=== PATIENT | female | born 1940 | race Caucasian/White ===

== ENCOUNTER → 2020-05-23 10:00 | Outpatient (BNVA) | payer MEDICARE, SELFPAY | PROVIDERS: Family Provider Family Medicine; PCP Family Medicine; Visit Provider Family Medicine | DX: M25.511 Pain in right shoulder (principal); M54.9 Dorsalgia, unspecified; G89.29 Other chronic pain; E78.2 Mixed hyperlipidemia; F32.5 Major depressive disorder, single episode, in full remission | CPT/HCPCS: 80053; 80061; 84439; 84443; 85025 ==

== ENCOUNTER 2020-06-06 06:00 | Outpatient (RCR) | payer MEDICARE, SELFPAY | END 2020-07-01 23:59 | disposition home or self-care (01) | LOC: GPT 06:00 | PROVIDERS: PCP Family Medicine; Referring Provider Family Medicine; Visit Provider Family Medicine | DX: G89.29 Other chronic pain (principal); M25.511 Pain in right shoulder; M54.9 Dorsalgia, unspecified | CPT/HCPCS: 97032; 97110; 97162; 97530; G0283 ==

== ENCOUNTER 2020-06-07 10:56 | Outpatient (CLI) | payer MEDICARE, SELFPAY ==
--- NOTE | 2020-06-07 11:08 | MM_ITS ---
WS: [id number] DIAGNOSTIC RIGHT DIGITAL MAMMOGRAM WITH CAD HISTORY: HX OF BREAST CA COMPARISON: None available. Technique: CC, MLO and ML views. Breast composition: There are scattered areas of fibroglandular density. Seen only on the MLO projec tion is a asymmetry measuring 6 mm above the nipple line. This is not identified on the remaining pro jections. Therefore this is probably superimposed fibroglandular densities. RIGHT breast: Spot compression views ( MLO). Ultrasound to follow if abnormality persists. MM/[place] [id number] IMPRESSION: BI-RADS: 0-Incomplete: Need additional imaging evaluation FOLLOW UP: Need Additional Imaging
== END 2020-06-07 10:57 | disposition home or self-care (01) ==
LOC: RADSHAW 11:00
PROVIDERS: PCP Family Medicine; Visit Provider Family Medicine
DX: Z85.3 Personal history of malignant neoplasm of breast (principal)
CPT/HCPCS: 77065

== ENCOUNTER 2020-06-13 13:10 | Outpatient (CLI) | payer MEDICARE, SELFPAY ==
--- NOTE | 2020-06-13 13:30 | MM_ITS ---
WS: [id number] Right breast diagnostic digital mammogram, 06/13/2020 Clinical Data: abnormal mammo Comparison: 06/07/2020, 04/18/2019, 01/17/2018, 07/16/2016, 02/08/2015, 10/12/2013. Findings: The small density seen on the prior MLO view of the right breast appears to be smaller and less dist inct. It is not seen on any of the other current views. The right breast shows fibroglandular tissue. MM/[place] [id number] Impression: 1. Improvement in appearance of small density seen only on the MLO view of the right breast. 2. Return to annual right breast mammogram BIRADS: 2-Benign FOLLOW UP: 1 Year Follow-up The CAD lumber checker was used.
== END 2020-06-13 13:11 | disposition home or self-care (01) ==
LOC: RADSHAW 13:12
PROVIDERS: PCP Family Medicine; Visit Provider Family Medicine
DX: R92.8 Other abnormal and inconclusive findings on diagnostic imaging of breast (principal)
CPT/HCPCS: 73502; 77065

== ENCOUNTER 2020-08-21 15:27 | Inpatient (IN) | payer MEDICARE, SELFPAY ==
[2020-08-21 15:35] VITALS: BP 123/62; PULSE 81; RESP 18; TEMP 36.5; O2SAT 93; BMI 33.6
[2020-08-21 16:41] VITALS: BP 133/61; PULSE 81; RESP 16; O2SAT 94
--- NOTE | 2020-08-21 17:10 | ED_ITS ---
HPI - COVID General: Chief Complaint: COVID symptoms Stated Complaint: urgent care sent over/oxygen too low Time Seen by Provider: 08/21/20 16:30 Source: patient Mode of arrival: ambulatory Limitations: no limitations Triage information: No fever, cough or shortness of breath . Exposure to COVID + person last 14 days History of Present Illness: HPI Narrative: Patient is an 80-year-old female who has been having cough and difficulty breathing for about 10 days. She went to see her primary care provider today and was tested for COVID-19. She was also instructed that if oxygen saturation drops into the 80s she needed to come to the emergency department. The patient states that it was in the low 80s at home and so came in here to be seen. MD complaint: reported COVID exposure and has COVID symptoms Prior covid testing: yes, results pending at [facility] location Prior testing date: 08/21/20 COVID 19 common symptoms: positive fever(s), chills, cough, dyspnea, body aches, loss of sense of smell and/or taste, nasal congestion and nausea; negative productive cough, fatigue, headache(s), throat pain, vomiting or diarrhea COVID 19 other sytmptoms: positive lethargy; negative chest pressure, chest pain , pleuritic pain, respiratory distress, cyanosis or confusion Onset (ago): day(s) (10) Severity: moderate COVID Results: SARS-CoV-2 Antigen (Rapid) Positive (Negative) H 08/21/20 17:48 08/21/20 SARS-CoV-2 RNA (RT-PCR) Pending 08/21/20 10:16 08/21/20 Review of Systems General: Reports: 10 or more systems reviewed and unremarkable except in HPI and below Const: Reports: fever(s), chills and body aches; Denies: fatigue Eyes: Denies: change in vision or blurry vision ENMT: Reports: nasal congestion; Denies: throat pain Card: Denies: chest pain Resp: Reports: dyspnea; Denies: productive cough GI: Reports: nausea; Denies: vomiting or diarrhea : Denies: flank pain, difficulty voiding, dysuria, urinary frequency, urinary urgency or urinary hesitancy Musc: Denies: neck pain, back pain or extremity swelling Skin/Breast: Denies: rash, pruritus or erythema Neuro: Denies: headache(s) or confusion Endo: Denies: polyuria, polydipsia or tired all the time PFSH ED PFSH: Medical History Bulging lumbar disc Chronic back pain Depression Hip pain History of cancer of left breast Hyperlipemia Irregular heart beat Pyelonephritis Reflux esophagitis Right shoulder pain Surgical History History of bunionectomy 3x both feet History of cataract extraction History of cholecystectomy History of eye surgery left History of knee replacement bilateral Family History (Updated 08/21/20 @ 21:37 by Rhonda Mayen MD) Father CAD (coronary artery disease) Mother CAD (coronary artery disease) Social History (Updated 08/21/20 @ 21:38 by Rhonda Mayen MD) Smoking and tobacco status: never smoked Alcohol intake: never Substance/Drug Use: never Household members: spouse Housing: House Current occupational status: retired Physical Exam Const: COMMON NORMALS: no acute distress, average body habitus, patient oriented x3, no limitations, healthy appearing, alert and well nourished HENMT: COMMON NORMALS: normocephalic, atraumatic and moist oral mucous membranes HEAD & SCALP: normocephalic and atraumatic Eye: COMMON NORMALS: Equal, round and reactive pupils present, EOMs intact bilaterally, conjunctivae normal and no scleral icterus CONJUNCTIVA: Yes conjunctivae normal PUPIL: Yes Equal, round and reactive pupils present Neck/C-Spine: COMMON NORMALS: full ROM, supple, no meningeal signs, no JVD and No carotid bruits Resp: COMMON NORMALS: normal respiratory effort, No retractions, No use of accessory muscles, clear to auscultation bilaterally and percussion normal AUSCULTATION: clear to auscultation bilaterally PERCUSSION: percussion normal Cardio: COMMON NORMALS: no JVD, regular rate, regular rhythm, S1 normal heart sound present, S2 normal heart sound present, No gallops present (Cardio), No clicks present (Cardio), No murmurs present (Cardio), No rub (Cardio) and Peripheral pulses 2+ throughout RATE: regular rate RHYTHM: regular rhythm HEART SOUNDS: S1 normal heart sound present and S2 normal heart sound present PERIPHERAL PULSES: Peripheral pulses 2+ throughout GI: COMMON NORMALS: Normal to inspection, nondistended, normoactive bowel sounds present, Soft to palpation, non-tender, No hepatosplenomegaly present, no masses and no bruits PALPATION: Yes Soft to palpation and Yes No hepatosplenomegaly present Extremity: COMMON NORMALS: normal to inspection, full ROM, capillary refill normal, no calf tenderness and no pedal edema Neuro: COMMON NORMALS: patient oriented x3 SENSORIUM/ORIENTATION: Yes alert MENINGEAL SIGNS: Yes no meningeal signs Skin: COMMON NORMALS: no rashes or lesions noted, no wounds, turgor normal, no jaundice, no petechiae and no mottling GENERAL SKIN EXAM: no rashes or lesions noted and turgor normal Course ED course: 80-year-old female patient who presents to the emergency department with complaints of shortness of breath, hypoxia at home. She had been tested for Covid earlier today but result was pending. Because she was hypoxic she was asked to come to the emergency department in the ED she had to be placed on oxygen and when she was off oxygen her oxygen saturat ion dropped to about 88% on room air. Rapid Covid test was positive. Because of her hypoxia she is admitted for further evaluation and management. Consultations: Consultation #1: , and he kindly accepted the patient to his service Vital Signs: Vital signs: Vital Signs Temperature 97.7 F 08/21/20 15:35 Pulse Rate 81 08/21/20 16:41 Respiratory Rate 16 08/21/20 16:41 Blood Pressure 133/61 08/21/20 16:41 Pulse Oximetry 94 08/21/20 16:41 MDM - COVID MDM Narrative Medical decision making narrative: 80-year-old female patient with hypoxia, secondary to Covid 19. Chest x-ray looks good but I think it is fair to say that she likely has pneumonia. She is admitted to the hospital for further evaluation and management Differential Diagnosis Differential diagnosis: Likely COVID 19, other viral infection and pneumonia Medical Records Attestation: I reviewed the patient's medical records. Lab Data Attestation: I reviewed the patient's lab results. Result diagrams: 08/21/20 18:40 08/21/20 18:40 Labs: Lab Results 08/21/20 08/21/20 08/21/20 Range/Units 17:45 17:48 18:40 WBC 4.9 (4.0-10.0) 10^3/uL RBC 4.48 (4.1-5.3) 10^6/uL Hgb 12.5 (11.5-15.3) g/dL Hct 39.9 (37.0-47.0) % MCV 89.1 (81-99) fL MCH 27.9 L (28.0-34.0) pg MCHC 31.3 (30.0-36.0) g/dL RDW 14.1 (12.1-15.1) % Plt Count 144 (130-400) 10^3/cmm MPV 10.6 H (7.4-10.4) fL Neut % (Auto) 80.4 % Lymph % (Auto) 15.7 % Bethel % (Auto) 3.1 % Eos % (Auto) 0.0 % Baso % (Auto) 0.2 % Neut # (Auto) 3.95 (1.8-7.7) 10^3/uL Lymph # (Auto) 0.8 (0.8-4.8) 10^3/uL Bethel # (Auto) 0.2 (0.2-0.9) 10^3/uL Eos # (Auto) 0.0 (0.0-0.8) 10^3/uL Baso # (Auto) 0.0 (0.0-0.1) 10^3/uL Nucleated RBC % (auto) 0 % Nucleated RBCs # 0.0 /100WBC Fibrinogen (174-498) mg/dL D-Dimer (0-0.59) ug/mIFEU Sodium (136-145) mmol/L Potassium (3.5-5.1) mmol/L Chloride (98-107) mmol/L Carbon Dioxide (22-29) mmol/L Anion Gap (5-19) BUN (8-23) mg/dL Creatinine (0.5-0.9) mg/dL GFR Calculation Glucose (65-115) mg/dL Calculated Osmolality (285-295) mOsm/kg Lactic Acid (0.5-2.2) mmol/L Calcium (8.5-10.5) mg/dL Total Bilirubin (0.15-1.2) mg/dL AST (0-32) U/L ALT (0-33) U/L Alkaline Phosphatase (35-105) IU/L Lactate Dehydrogenase (135-214) U/L Troponin T Gen 5 ng/L (0-10) ng/L Total Protein (6.6-8.7) g/dL Albumin (3.5-5.2) g/dL Globulin (1.3-4.6) g/dL Influenza Type A Ag Cancelled Influenza Type B Ag Cancelled SARS-CoV-2 Ag (Rapid) Positive H (Negative) 08/21/20 08/21/20 08/21/20 Range/Units 18:40 18:40 18:40 WBC (4.0-10.0) 10^3/uL RBC (4.1-5.3) 10^6/uL Hgb (11.5-15.3) g/dL Hct (37.0-47.0) % MCV (81-99) fL MCH (28.0-34.0) pg MCHC (30.0-36.0) g/dL RDW (12.1-15.1) % Plt Count (130-400) 10^3/cmm MPV (7.4-10.4) fL Neut % (Auto) % Lymph % (Auto) % Bethel % (Auto) % Eos % (Auto) % Baso % (Auto) % Neut # (Auto) (1.8-7.7) 10^3/uL Lymph # (Auto) (0.8-4.8) 10^3/uL Bethel # (Auto) (0.2-0.9) 10^3/uL Eos # (Auto) (0.0-0.8) 10^3/uL Baso # (Auto) (0.0-0.1) 10^3/uL Nucleated RBC % (auto) % Nucleated RBCs # /100WBC Fibrinogen 752 H (174-498) mg/dL D-Dimer 0.87 H (0-0.59) ug/mIFEU Sodium 137 (136-145) mmol/L Potassium 4.6 (3.5-5.1) mmol/L Chloride 100 (98-107) mmol/L Carbon Dioxide 26 (22-29) mmol/L Anion Gap 15.6 (5-19) BUN 24 H (8-23) mg/dL Creatinine 1.3 H (0.5-0.9) mg/dL GFR Calculation Not Reportable Glucose 152 H (65-115) mg/dL Calculated Osmolality 291 (285-295) mOsm/kg Lactic Acid 0.6 (0.5-2.2) mmol/L Calcium 9.1 (8.5-10.5) mg/dL Total Bilirubin 0.4 (0.15-1.2) mg/dL AST 32 (0-32) U/L ALT 26 (0-33) U/L Alkaline Phosphatase 82 (35-105) IU/L Lactate Dehydrogenase 233 H (135-214) U/L Troponin T Gen 5 ng/L (0-10) ng/L Total Protein 7.4 (6.6-8.7) g/dL Albumin 3.7 (3.5-5.2) g/dL Globulin 3.7 (1.3-4.6) g/dL Influenza Type A Ag Influenza Type B Ag SARS-CoV-2 Ag (Rapid) (Negative) 08/21/20 Range/Units 18:40 WBC (4.0-10.0) 10^3/uL RBC (4.1-5.3) 10^6/uL Hgb (11.5-15.3) g/dL Hct (37.0-47.0) % MCV (81-99) fL MCH (28.0-34.0) pg MCHC (30.0-36.0) g/dL RDW (12.1-15.1) % Plt Count (130-400) 10^3/cmm MPV (7.4-10.4) fL Neut % (Auto) % Lymph % (Auto) % Bethel % (Auto) % Eos % (Auto) % Baso % (Auto) % Neut # (Auto) (1.8-7.7) 10^3/uL Lymph # (Auto) (0.8-4.8) 10^3/uL Bethel # (Auto) (0.2-0.9) 10^3/uL Eos # (Auto) (0.0-0.8) 10^3/uL Baso # (Auto) (0.0-0.1) 10^3/uL Nucleated RBC % (auto) % Nucleated RBCs # /100WBC Fibrinogen (174-498) mg/dL D-Dimer (0-0.59) ug/mIFEU Sodium (136-145) mmol/L Potassium (3.5-5.1) mmol/L Chloride (98-107) mmol/L Carbon Dioxide (22-29) mmol/L Anion Gap (5-19) BUN (8-23) mg/dL Creatinine (0.5-0.9) mg/dL GFR Calculation Glucose (65-115) mg/dL Calculated Osmolality (285-295) mOsm/kg Lactic Acid (0.5-2.2) mmol/L Calcium (8.5-10.5) mg/dL Total Bilirubin (0.15-1.2) mg/dL AST (0-32) U/L ALT (0-33) U/L Alkaline Phosphatase (35-105) IU/L Lactate Dehydrogenase (135-214) U/L Troponin T Gen 5 ng/L 14 H (0-10) ng/L Total Protein (6.6-8.7) g/dL Albumin (3.5-5.2) g/dL Globulin (1.3-4.6) g/dL Influenza Type A Ag Influenza Type B Ag SARS-CoV-2 Ag (Rapid) (Negative) COVID Results: SARS-CoV-2 Antigen (Rapid) Positive (Negative) H 08/21/20 17:48 08/21/20 SARS-CoV-2 RNA (RT-PCR) Pending 08/21/20 10:16 08/21/20 Imaging Data CXR: Attestation: I personally reviewed and interpreted this imaging study as follows: My impression: There is some haziness of the left costochondral angle. Otherwise unremarkable Discharge Plan Discharge Patient Disposition: Placed in Observation Admit Provider: Rhonda Mayen Clinical Impression: COVID-19 determined by clinical diagnostic criteria, Hypoxia Condition: Stable Coding Level of Care Code ED Dental Assistant for Chg Fwd Exam Comprehensive
--- NOTE | 2020-08-21 18:39 | XR_ITS ---
WS: [id number] Portable AP upright chest, 08/21/2020 Clinical Data: SOB Comparison: None. Findings: No nodules, masses or effusions are seen. The heart is normal. The pulmonary vascularity is not increased. No pneumonia or pneumothorax is seen. The aortic arch and descending aorta are tortuo us. Monitor leads are on the upper chest wall. XR/XR chest 1V portable [id number] Impression: Atherosclerosis.
--- NOTE | 2020-08-21 19:38 | PC.NURSE ---
UA collected and sent to lab
[2020-08-21 20:01] LABS: SARS Covid-2 Antigen Positive (Negative)
[2020-08-21 20:02] LABS: Alanine Aminotransferase 26 U/L (0-33); Albumin Level 3.7 g/dL (3.5-5.2); Alkaline Phosphatase 82 IU/L (35-105); Anion Gap 15.6 (5-19); Aspartate Amino Transferase 32 U/L (0-32); Blood Urea Nitrogen 24 mg/dL (8-23); Calcium 9.1 mg/dL (8.5-10.5); Carbon Dioxide 26 mmol/L (22-29); Chloride 100 mmol/L (98-107); Globulin 3.7 g/dL (1.3-4.6); Glucose 152 mg/dL (65-115); Lactate Dehydrogenase 233 U/L (135-214); Lactic Sepsis W/Reflex 0.6 mmol/L (0.5-2.2); Osmolality Calculated 291 mOsm/kg (285-295); Potassium 4.6 mmol/L (3.5-5.1); Sodium 137 mmol/L (136-145); Total Bilirubin 0.4 mg/dL (0.15-1.2); Total Protein 7.4 g/dL (6.6-8.7); Troponin T (5th) Once 14 ng/L (0-10)
[2020-08-21 20:07] LABS: Basophils % 0.2 %; Hematocrit 39.9 % (37.0-47.0); Hemoglobin 12.5 g/dL (11.5-15.3); Lymphocytes # 0.8 10^3/uL (0.8-4.8); Lymphocytes % 15.7 %; Mean Corpuscular HGB Conc 31.3 g/dL (30.0-36.0); Mean Corpuscular Hemoglobin 27.9 pg (28.0-34.0); Mean Corpuscular Volume 89.1 fL (81-99); Mean Platelet Volume 10.6 fL (7.4-10.4); Monocytes # 0.2 10^3/uL (0.2-0.9); Monocytes % 3.1 %; Neutrophils # 3.95 10^3/uL (1.8-7.7); Neutrophils % 80.4 %; Nucleated Red Blood Cells % 0 %; Platelet Count 144 10^3/cmm (130-400); Red Blood Count 4.48 10^6/uL (4.1-5.3); Red Cell Distribution Width 14.1 % (12.1-15.1); White Blood Count 4.9 10^3/uL (4.0-10.0)
--- NOTE | 2020-08-21 20:35 | P.HP_ITS ---
Providers/Chief Complaint Primary Care Provider: Jackson Valerio DO Chief Complaint: urgent care sent over/oxygen too low History of Present Illness Marlen Francis is a 80 year old female who does not have significant past medical history came in with chief complaint of worsening shortness of breath. Patient is stating that her symptoms started about 10 days ago with sinus congestion, she has been experiencing productive cough, she is bringing up white sputum, low-grade fevers, less than 100, did feel nauseous without any episodes of emesis, denying diarrhea, dysuria, chest pain or headaches. Few days ago when she made dinner, she experienced change in her taste. She has only going outside for essential visits otherwise she has stayed home, her also has cold, he has not been tested yet. Today she presented to the hospital for worsening shortness of breath, diagnosis in the ER revealed normal hemodynamics, chest x-ray is normal, Covid antigen positive, she is requiring 2 to 3 L of oxygen at rest, her oxygen saturation would drop to 88% on room air at rest. However no acute distress. Considering requirement of oxygen Decadron and antibiotic regiment started. Review of Systems Const: Reports: fever(s), chills, body aches, change in appetite and fatigue Eyes: Denies: change in vision ENMT: Reports: other (Dysgeusia) Card: Reports: dyspnea on exertion; Denies: chest pain Resp: Reports: dyspnea and productive cough GI: Reports: nausea; Denies: abdominal pain, vomiting, diarrhea or constipation : Reports: flank pain (Left-sided flank pain) Musc: Denies: neck pain Skin/Breast: Denies: rash Neuro: Denies: headache(s) Psych: Denies: anxiety Endo: Denies: polyuria Jose/Lymph: Denies: easy bruising All/Imm: Denies: urticaria Medications/Allergies Home Medications Medication Instructions Recorded Confirmed Last Taken Type metoprolol succinate 25 mg capsule 25 mg PO DAILY #30 each 04/18/20 08/21/20 Unknown Rx sprinkle, ext. release 24 hr omeprazole 40 mg capsule,delayed 40 mg PO DAILY #30 cap 04/18/20 08/21/20 Unknown Rx release sertraline 50 mg tablet 25 mg PO DAILY #90 tab 05/20/20 08/21/20 Unknown Rx bumetanide 0.5 mg tablet See Rx Instructions .ROUTE 06/20/20 08/21/20 Unknown Rx .COMPLEX #90 unspecified rosuvastatin 40 mg tablet See Rx Instructions .ROUTE 06/20/20 08/21/20 Unknown Rx .COMPLEX #90 unspecified azithromycin 250 mg tablet See Rx Instructions PO .COMPLEX #6 08/21/20 08/21/20 Unknown Rx tab prednisone 20 mg tablet 40 mg PO DAILY 5 Days #10 tab 08/21/20 08/21/20 Unknown Rx Allergies Allergy/AdvReac Type Severity Reaction Status Date / Time adhesive tape Allergy Unknown Unknown Verified 08/21/20 10:11 Penicillins Allergy Unknown Unknown Verified 08/21/20 10:11 Sulfa (Sulfonamide Allergy Unknown Unknown Verified 08/21/20 10:11 Antibiotics) acetaminophen [From Percocet] AdvReac Unknown Unknown Verified 08/21/20 10:11 oxycodone [From Percocet] AdvReac Unknown Unknown Verified 08/21/20 10:11 PFSH Acute 2 PFSH: Medical History Bulging lumbar disc Chronic back pain Depression Hip pain History of cancer of left breast Hyperlipemia Irregular heart beat Pyelonephritis Reflux esophagitis Right shoulder pain Surgical History History of bunionectomy 3x both feet History of cataract extraction History of cholecystectomy History of eye surgery left History of knee replacement bilateral Family History (Updated 08/21/20 @ 21:37 by Rhonda Mayen MD) Father CAD (coronary artery disease) Mother CAD (coronary artery disease) Social History (Updated 08/21/20 @ 21:38 by Rhonda Mayen MD) Smoking and tobacco status: never smoked Alcohol intake: never Substance/Drug Use: never Household members: spouse Housing: House Current occupational status: retired Vitals/I&O/Wt Last Vital Signs Temp 97.7 F 08/21/20 15:35 Pulse 81 08/21/20 16:41 Resp 16 08/21/20 16:41 BP 133/61 08/21/20 16:41 Pulse Ox 94 08/21/20 16:41 Weight last 48 hrs Weight 97.522 kg Physical Exam Narrative: EXAM NARRATIVE: This is a very pleasant female who is sitting at the bedside without acute distress No active chest pain She saturating well on 4 L nasal cannula Appears younger than stated age S1, S2 no tachycardia No active signs of heart failure Abdomen distended, nontender No CVA tenderness She complained of left flank pain which she is attributing to rib fracture in the past, Neurologically nonfocal exam Awake alert oriented x3 GCS 15 Appropriate mood and affect Bilateral breath sounds without adventitious rhonchi or crackles Skin without ischemia gangrene or ulcer Data : 08/21/20 18:40 08/21/20 18:40 A&P Assessment and plan (1) Hypoxia: Status: Acute (2) COVID-19 determined by clinical diagnostic criteria: Status: Acute (3) Chronic kidney disease: Status: Acute Additional A&P Information Acute hypoxic respiratory failure due to SARS COVID-19 Requiring 2-4 L nasal cannula, desaturated to 88% on room air at rest, Start Decadron and antiviral regimen Home O2 evaluation before No acute respiratory distress Would hold a azithromycin which she has been taking for sinus congestion Severe COVID-19 pneumonia requiring oxygenation Chronic kidney disease, creatinine seems to be around baseline, GFR not reported abnormal unable to classify Previous creatinine has been ranging between 1.4-1.6 Currently euvolemic Atrial tachycardia history: No acute exacerbation, continue metoprolol succinate for now Full code DVT prophylaxis Heparin Cardiac diet Attestations Medical Necessity Statement*: Anticipating discharge in less than 48 hours continued oxygen supplementation for COVID-19 viral pneumonia, Time Spent in Patient Care: (>than 50% of time spent in counselling and/or direct pt care on unit) . 40mins Coding Level of Care Code Acute Pricing/Signage Team Member for Cora Minor 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
[2020-08-21 20:40] LABS: D Dimer 0.87 ug/mIFEU (0-0.59); Fibrinogen 752 mg/dL (174-498)
[2020-08-21] MEDS: dexamethasone 4 mg/mL INJ 6 MG IVP (21:03)
[2020-08-21] MEDS: sodium chloride 0.9% 1,000 ML 999 ML IV (21:04)
[2020-08-21 21:48] VITALS: BP 106/59; PULSE 74; RESP 16; O2SAT 96
[2020-08-21 22:02] LABS: Bilirubin Urine Neg (Negative); Blood Urine Neg (Negative); Glucose Urine UA Norm (Normal); Ketones Urine Negative (Negative); Leukocyte Esterase Urine Negative (Negative); Nitrate Urine Negative (Negative); Protein Urine Neg (Negative); Specific Gravity, Urine 1.015 (1.005-1.030); Urine Appearance Clear (CLEAR); Urine Color Yellow (Yellow); Urobilinogen Urine Norm (Negative)
[2020-08-21 22:03] LABS: Add Urine Culture? No
[2020-08-21 22:15] LABS: Procalcitonin 0.09 ng/mL (0-0.5)
[2020-08-21 22:25] LABS: C Reactive Protein 131.2 mg/L (0.0-4.9)
[2020-08-21 22:52] VITALS: BP 149/76; PULSE 79; RESP 18; TEMP 36.9; O2SAT 98
[2020-08-21] MEDS: heparin 5,000 unit/mL INJ 1 mL 5000 UNIT SUBCUT (23:18)
[2020-08-21 23:59] VITALS: BP 108/78; PULSE 104; RESP 16; O2SAT 96
[2020-08-22] VITALS (9 sets, daily range): BP systolic 123–152; BP diastolic 68–74; PULSE 64–78; RESP 16–18; TEMP 36.4–36.9; O2SAT 93–98
[2020-08-22 05:55] LABS: Hematocrit 37.1 % (37.0-47.0); Hemoglobin 11.6 g/dL (11.5-15.3); Lymphocytes # 0.6 10^3/uL (0.8-4.8); Lymphocytes % 16.4 %; Mean Corpuscular HGB Conc 31.3 g/dL (30.0-36.0); Mean Corpuscular Hemoglobin 27.9 pg (28.0-34.0); Mean Corpuscular Volume 89.2 fL (81-99); Mean Platelet Volume 11.1 fL (7.4-10.4); Monocytes # 0.1 10^3/uL (0.2-0.9); Monocytes % 3.1 %; Neutrophils # 2.81 10^3/uL (1.8-7.7); Neutrophils % 79.7 %; Nucleated Red Blood Cells % 0 %; Platelet Count 130 10^3/cmm (130-400); Red Blood Count 4.16 10^6/uL (4.1-5.3); Red Cell Distribution Width 13.6 % (12.1-15.1); White Blood Count 3.5 10^3/uL (4.0-10.0)
[2020-08-22 06:27] LABS: Alanine Aminotransferase 23 U/L (0-33); Albumin Level 3.2 g/dL (3.5-5.2); Alkaline Phosphatase 69 IU/L (35-105); Blood Urea Nitrogen 23 mg/dL (8-23); Calcium 8.8 mg/dL (8.5-10.5); Carbon Dioxide 25 mmol/L (22-29); Chloride 104 mmol/L (98-107); Globulin 3.5 g/dL (1.3-4.6); Glucose 196 mg/dL (65-115); Osmolality Calculated 297 mOsm/kg (285-295); Sodium 139 mmol/L (136-145); Total Bilirubin 0.3 mg/dL (0.15-1.2); Total Protein 6.7 g/dL (6.6-8.7)
[2020-08-22 06:33] LABS: Anion Gap 14.7 (5-19); Aspartate Amino Transferase 38 U/L (0-32); Potassium 4.7 mmol/L (3.5-5.1)
[2020-08-22 08:07] LABS: Glucose Point of Care 166 mg/dL (70-110)
[2020-08-22] MEDS: heparin 5,000 unit/mL INJ 1 mL 5000 UNIT SUBCUT ×3 (08:49→21:56)
[2020-08-22] MEDS: metoprolol succinate ER (24 HR) 25 mg Tablet PO (08:50)
[2020-08-22] MEDS: pantoprazole DR 40 mg Tablet PO (08:50)
[2020-08-22] MEDS: atorvastatin 40 mg Tablet PO (08:50)
[2020-08-22] MEDS: dexamethasone 4 mg Tablet 6 MG PO (08:50)
[2020-08-22] MEDS: sertraline 50 mg Tablet 25 MG PO (08:52)
[2020-08-22 11:58] LABS: Glucose Point of Care 160 mg/dL (70-110)
--- NOTE | 2020-08-22 12:05 | PM.PN ---
Subjective Subjective: Interval history: Patient feels much better since last night. She is saturating well on 2 L oxygen through nasal cannula. Her shortness of breath has improved, she is tolerating diet, though she still has not good appetite. Vitals and labs have been reviewed. Medications: Reviewed: Yes Vitals/I&O/Wt Last Vital Signs Temp 97.8 F 08/22/20 08:09 Pulse 77 08/22/20 09:23 Resp 18 08/22/20 09:23 BP 143/68 08/22/20 08:09 Pulse Ox 97 08/22/20 09:23 08/21/20 08/22/20 08/22/20 22:59 06:59 14:59 Intake Total 300 / 300 Output Total 350 / 350 Balance -350 / -350 300 / 300 Weight last 48 hrs Weight 97.522 kg Physical Exam Const: COMMON NORMALS: patient oriented x3 HENMT: COMMON NORMALS: normocephalic, atraumatic, hearing grossly normal bilaterally and external ears normal HEAD & SCALP: normocephalic and atraumatic EXTERNAL EAR: Yes external ears normal Eye: COMMON NORMALS: no scleral icterus GENERAL EYE: appearance normal, both eyes and all related structures Chest: COMMONS NORMALS: normal inspection of the chest and normal palpation of entire chest wall CHEST: Yes Symmetrical chest wall rise Resp: COMMON NORMALS: normal respiratory effort, No retractions, No use of accessory muscles and clear to auscultation bilaterally EFFORT & INSPECTION: Yes symmetric chest movement AUSCULTATION: clear to auscultation bilaterally Cardio: COMMON NORMALS: regular rate, regular rhythm, S1 normal heart sound present, S2 normal heart sound present, No gallops present (Cardio), No murmurs present (Cardio), No rub (Cardio) and Peripheral pulses 2+ throughout RATE: regular rate RHYTHM: regular rhythm HEART SOUNDS: S1 normal heart sound present and S2 normal heart sound present PERIPHERAL PULSES: Peripheral pulses 2+ throughout GI: COMMON NORMALS: Normal to inspection, nondistended, normoactive bowel sounds present, Soft to palpation, non-tender, No hepatosplenomegaly present and no masses AUSCULTATION: Yes normoactive bowel sounds PALPATION: Yes Soft to palpation and Yes No hepatosplenomegaly present RECTAL EXAM: deferred Extremity: COMMON NORMALS: no clubbing, cyanosis or edema and no pedal edema Neuro: COMMON NORMALS: patient oriented x3 Data : 08/22/20 04:50 08/22/20 04:50 A&P Assessment and plan (1) Hypoxia: Status: Acute (2) COVID-19 determined by clinical diagnostic criteria: Status: Acute (3) Chronic kidney disease: Status: Acute Additional A&P Information #Acute hypoxic respiratory failure due to SARS COVID-19 Requiring 2-4 L nasal cannula, desaturated to 88% on room air at rest, Continue Decadron and antiviral regimen No acute respiratory distress #Severe COVID-19 pneumonia requiring oxygenation #Chronic kidney disease, creatinine seems to be around baseline, GFR not reported abnormal unable to classify Previous creatinine has been ranging between 1.4-1.6 Currently euvolemic #Atrial tachycardia history: No acute exacerbation, continue metoprolol succinate for now Full code DVT prophylaxis Heparin Cardiac diet Attestations Medical Necessity Statement*: Patient is to be hospital for management of Covid pneumonia. Coding Level of Care Code Acute Expert Medical Writer for Cora Minor 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
[2020-08-22 16:51] LABS: Glucose Point of Care 178 mg/dL (70-110)
[2020-08-22 21:29] LABS: Glucose Point of Care 170 mg/dL (70-110)
[2020-08-23] VITALS (8 sets, daily range): BP systolic 124–138; BP diastolic 68–72; PULSE 57–87; RESP 14–18; TEMP 36.5–37.2; O2SAT 92–97
[2020-08-23 06:40] LABS: Glucose Point of Care 134 mg/dL (70-110)
[2020-08-23] MEDS: metoprolol succinate ER (24 HR) 25 mg Tablet PO (08:48)
[2020-08-23] MEDS: heparin 5,000 unit/mL INJ 1 mL 5000 UNIT SUBCUT ×2 (08:48→17:43)
[2020-08-23] MEDS: dexamethasone 4 mg Tablet 6 MG PO (08:48)
[2020-08-23] MEDS: pantoprazole DR 40 mg Tablet PO (08:49)
[2020-08-23] MEDS: sertraline 50 mg Tablet 25 MG PO (08:49)
[2020-08-23] MEDS: atorvastatin 40 mg Tablet PO (08:50)
[2020-08-23 11:22] LABS: Glucose Point of Care 177 mg/dL (70-110)
--- NOTE | 2020-08-23 11:40 | PM.PN ---
Subjective Subjective: Interval history: She is doing much better today.Has saturated above 90 % on minimum suplemental oxygen. Though she still has some nausea and cough. Has remained afebrile and other vitals have been stable. Medications: Reviewed: Yes Vitals/I&O/Wt Last Vital Signs Temp 98.0 F 08/23/20 11:27 Pulse 57 L 08/23/20 11:27 Resp 18 08/23/20 11:27 BP 124/71 08/23/20 11:27 Pulse Ox 97 08/23/20 11:27 08/22/20 08/23/20 08/23/20 22:59 06:59 14:59 Intake Total 480 / 1020 240 / 240 Output Total 250 / 250 1570 / 1820 Balance 230 / 770 -1570 / -800 240 / 240 Weight last 48 hrs Weight 97.522 kg Physical Exam Const: COMMON NORMALS: patient oriented x3 HENMT: COMMON NORMALS: normocephalic, atraumatic, hearing grossly normal bilaterally and external ears normal HEAD & SCALP: normocephalic and atraumatic EXTERNAL EAR: Yes external ears normal Eye: COMMON NORMALS: no scleral icterus GENERAL EYE: appearance normal, both eyes and all related structures Chest: COMMONS NORMALS: normal inspection of the chest and normal palpation of entire chest wall CHEST: Yes Symmetrical chest wall rise Resp: COMMON NORMALS: normal respiratory effort, No retractions, No use of accessory muscles and clear to auscultation bilaterally EFFORT & INSPECTION: Yes symmetric chest movement AUSCULTATION: clear to auscultation bilaterally Cardio: COMMON NORMALS: regular rate, regular rhythm, S1 normal heart sound present, S2 normal heart sound present, No gallops present (Cardio), No murmurs present (Cardio), No rub (Cardio) and Peripheral pulses 2+ throughout RATE: regular rate RHYTHM: regular rhythm HEART SOUNDS: S1 normal heart sound present and S2 normal heart sound present PERIPHERAL PULSES: Peripheral pulses 2+ throughout GI: COMMON NORMALS: Normal to inspection, nondistended, normoactive bowel sounds present, Soft to palpation, non-tender, No hepatosplenomegaly present and no masses AUSCULTATION: Yes normoactive bowel sounds PALPATION: Yes Soft to palpation and Yes No hepatosplenomegaly present RECTAL EXAM: deferred Extremity: COMMON NORMALS: no clubbing, cyanosis or edema and no pedal edema Neuro: COMMON NORMALS: patient oriented x3 Data : 08/22/20 04:50 08/22/20 04:50 A&P Assessment and plan (1) Hypoxia: Status: Acute (2) COVID-19 determined by clinical diagnostic criteria: Status: Acute (3) Chronic kidney disease: Status: Acute Additional A&P Information #Acute hypoxic respiratory failure due to SARS COVID-19 ( Improving ) She is doing much better today.Has saturated above 90 % on minimum suplemental oxygen. Though she still has some nausea and cough. Has remained afebrile and other vitals have been stable. Continue Decadron and antiviral regimen No acute respiratory distress #COVID-19 pneumonia: Plan as 1 #Chronic kidney disease, creatinine seems to be around baseline. 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
[2020-08-23 17:05] LABS: Glucose Point of Care 164 mg/dL (70-110)
[2020-08-23] MEDS: fluticasone nasal spray 16gm Btl 1 SPRAY NASAL (17:44)
[2020-08-23 21:12] LABS: Glucose Point of Care 224 mg/dL (70-110)
[2020-08-24] VITALS (7 sets, daily range): BP systolic 116–148; BP diastolic 65–80; PULSE 52–86; RESP 14–18; TEMP 36.7–37; O2SAT 92–100
[2020-08-24] MEDS: heparin 5,000 unit/mL INJ 1 mL 5000 UNIT SUBCUT ×3 (00:07→17:45)
[2020-08-24 05:39] LABS: Basophils % 0.2 %; Hemoglobin 11.9 g/dL (11.5-15.3); Lymphocytes # 1.1 10^3/uL (0.8-4.8); Lymphocytes % 12.2 %; Mean Corpuscular HGB Conc 32.2 g/dL (30.0-36.0); Mean Corpuscular Hemoglobin 28.3 pg (28.0-34.0); Mean Corpuscular Volume 87.9 fL (81-99); Mean Platelet Volume 10.5 fL (7.4-10.4); Monocytes # 0.4 10^3/uL (0.2-0.9); Monocytes % 4.1 %; Neutrophils # 7.45 10^3/uL (1.8-7.7); Nucleated Red Blood Cells % 0 %; Platelet Count 188 10^3/cmm (130-400); Red Blood Count 4.21 10^6/uL (4.1-5.3); Red Cell Distribution Width 13.6 % (12.1-15.1); White Blood Count 9.2 10^3/uL (4.0-10.0)
[2020-08-24 05:59] LABS: Alanine Aminotransferase 22 U/L (0-33); Albumin Level 3.2 g/dL (3.5-5.2); Alkaline Phosphatase 67 IU/L (35-105); Anion Gap 12.6 (5-19); Aspartate Amino Transferase 22 U/L (0-32); Blood Urea Nitrogen 35 mg/dL (8-23); Calcium 8.7 mg/dL (8.5-10.5); Carbon Dioxide 25 mmol/L (22-29); Chloride 106 mmol/L (98-107); Globulin 2.6 g/dL (1.3-4.6); Glucose 132 mg/dL (65-115); Osmolality Calculated 298 mOsm/kg (285-295); Potassium 4.6 mmol/L (3.5-5.1); Sodium 139 mmol/L (136-145); Total Bilirubin 0.3 mg/dL (0.15-1.2); Total Protein 5.8 g/dL (6.6-8.7)
[2020-08-24 06:10] LABS: Ferritin 662 ng/mL (15-150)
[2020-08-24 06:11] LABS: C Reactive Protein 30.6 mg/L (0.0-4.9)
[2020-08-24 06:39] LABS: Glucose Point of Care 117 mg/dL (70-110)
[2020-08-24 06:58] LABS: Erythrocyte Sedimentation Rate 49 mm/hr (0-15)
[2020-08-24 07:23] LABS: Fibrinogen 461 mg/dL (174-498)
[2020-08-24 07:27] LABS: D Dimer 1.12 ug/mIFEU (0-0.59)
[2020-08-24] MEDS: pantoprazole DR 40 mg Tablet PO (11:23)
[2020-08-24] MEDS: dexamethasone 4 mg Tablet 6 MG PO (11:23)
[2020-08-24] MEDS: fluticasone nasal spray 16gm Btl 1 SPRAY NASAL ×2 (11:23→17:45)
[2020-08-24] MEDS: atorvastatin 40 mg Tablet PO (11:23)
[2020-08-24] MEDS: sertraline 50 mg Tablet 25 MG PO (11:24)
[2020-08-24] MEDS: metoprolol succinate ER (24 HR) 25 mg Tablet PO (11:24)
[2020-08-24 13:13] LABS: Glucose Point of Care 135 mg/dL (70-110)
[2020-08-24 17:14] LABS: Glucose Point of Care 169 mg/dL (70-110)
[2020-08-24 21:19] LABS: Glucose Point of Care 281 mg/dL (70-110)
--- NOTE | 2020-08-24 21:56 | P.PN_ITS ---
Subjective Subjective: Interval history: No acute event overnight.Though she is still complaining of fatigue and weakness. Vitals and labs have been reviewed. Currently saturating above 90 % on R.A Medications: Reviewed: Yes Vitals/I&O/Wt Last Vital Signs Temp 98.6 F 08/24/20 20:00 Pulse 52 L 08/24/20 20:52 Resp 18 08/24/20 20:52 BP 125/65 08/24/20 20:00 Pulse Ox 96 08/24/20 20:52 08/24/20 08/24/20 08/24/20 06:59 14:59 22:59 Intake Total 240 / 960 480 / 480 Output Total 1250 / 2550 600 / 600 1000 / 1600 Balance -1010 / -1590 -120 / -120 -1000 / -1120 Physical Exam Const: COMMON NORMALS: patient oriented x3 HENMT: COMMON NORMALS: normocephalic, atraumatic, hearing grossly normal bilaterally and external ears normal HEAD & SCALP: normocephalic and atraumatic EXTERNAL EAR: Yes external ears normal Eye: COMMON NORMALS: no scleral icterus GENERAL EYE: appearance normal, both eyes and all related structures Chest: COMMONS NORMALS: normal inspection of the chest and normal palpation of entire chest wall CHEST: Yes Symmetrical chest wall rise Resp: COMMON NORMALS: normal respiratory effort, No retractions, No use of accessory muscles and clear to auscultation bilaterally EFFORT & INSPECTION: Yes symmetric chest movement AUSCULTATION: clear to auscultation bilaterally Cardio: COMMON NORMALS: regular rate, regular rhythm, S1 normal heart sound present, S2 normal heart sound present, No gallops present (Cardio), No murmurs present (Cardio), No rub (Cardio) and Peripheral pulses 2+ throughout RATE: regular rate RHYTHM: regular rhythm HEART SOUNDS: S1 normal heart sound present and S2 normal heart sound present PERIPHERAL PULSES: Peripheral pulses 2+ throughout GI: COMMON NORMALS: Normal to inspection, nondistended, normoactive bowel sounds present, Soft to palpation, non-tender, No hepatosplenomegaly present and no masses AUSCULTATION: Yes normoactive bowel sounds PALPATION: Yes Soft to palpation and Yes No hepatosplenomegaly present RECTAL EXAM: deferred Extremity: COMMON NORMALS: no clubbing, cyanosis or edema and no pedal edema Neuro: COMMON NORMALS: patient oriented x3 Data : 08/24/20 05:15 08/24/20 05:15 A&P Assessment and plan (1) Hypoxia: Status: Acute (2) COVID-19 determined by clinical diagnostic criteria: Status: Acute (3) Chronic kidney disease: Status: Acute Additional A&P Information #Acute hypoxic respiratory failure due to SARS COVID-19 ( Improving ) She is doing much better today.Has saturated above 90 % on minimum suplemental oxygen. Has remained afebrile and other vitals have been stable. Continue Decadron and antiviral regimen No acute respiratory distress #COVID-19 pneumonia: Plan as 1 #Chronic kidney disease, creatinine seems to be around baseline. 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
[2020-08-25] VITALS (7 sets, daily range): BP systolic 134–148; BP diastolic 65–72; PULSE 52–68; RESP 16–18; TEMP 36.4–36.8; O2SAT 92–99
[2020-08-25] MEDS: heparin 5,000 unit/mL INJ 1 mL 5000 UNIT SUBCUT ×2 (01:29→08:11)
[2020-08-25 04:13] LABS: Basophils % 0.1 %; Hematocrit 39.5 % (37.0-47.0); Hemoglobin 12.6 g/dL (11.5-15.3); Lymphocytes % 11.4 %; Mean Corpuscular HGB Conc 31.9 g/dL (30.0-36.0); Mean Corpuscular Hemoglobin 28.2 pg (28.0-34.0); Mean Corpuscular Volume 88.4 fL (81-99); Mean Platelet Volume 10.4 fL (7.4-10.4); Monocytes # 0.5 10^3/uL (0.2-0.9); Monocytes % 5.3 %; Neutrophils # 7.09 10^3/uL (1.8-7.7); Neutrophils % 78.8 %; Nucleated Red Blood Cells % 0 %; Platelet Count 194 10^3/cmm (130-400); Red Blood Count 4.47 10^6/uL (4.1-5.3); Red Cell Distribution Width 13.7 % (12.1-15.1)
[2020-08-25 04:32] LABS: Alanine Aminotransferase 29 U/L (0-33); Albumin Level 3.2 g/dL (3.5-5.2); Alkaline Phosphatase 79 IU/L (35-105); Anion Gap 13.1 (5-19); Aspartate Amino Transferase 26 U/L (0-32); Blood Urea Nitrogen 33 mg/dL (8-23); Calcium 9.2 mg/dL (8.5-10.5); Carbon Dioxide 27 mmol/L (22-29); Chloride 104 mmol/L (98-107); Globulin 3.3 g/dL (1.3-4.6); Glucose 136 mg/dL (65-115); Osmolality Calculated 297 mOsm/kg (285-295); Potassium 5.1 mmol/L (3.5-5.1); Sodium 139 mmol/L (136-145); Total Bilirubin 0.3 mg/dL (0.15-1.2); Total Protein 6.5 g/dL (6.6-8.7)
[2020-08-25 06:32] LABS: Glucose Point of Care 123 mg/dL (70-110)
[2020-08-25] MEDS: dexamethasone 4 mg Tablet 6 MG PO (08:11)
[2020-08-25] MEDS: atorvastatin 40 mg Tablet PO (08:11)
[2020-08-25] MEDS: fluticasone nasal spray 16gm Btl 1 SPRAY NASAL (08:11)
[2020-08-25] MEDS: pantoprazole DR 40 mg Tablet PO (08:12)
[2020-08-25] MEDS: metoprolol succinate ER (24 HR) 25 mg Tablet PO (08:12)
[2020-08-25] MEDS: sertraline 50 mg Tablet 25 MG PO (08:12)
--- NOTE | 2020-08-25 11:05 | PM.DCS ---
Discharge Providers Date of Admission: 08/22/20 19:15 Date of Discharge: August 25, 2020 Attending Provider at Admission: Rhonda Mayen MD Attending Provider at Discharge: Wisam Nelson MD Primary Care Provider: Jackson Valerio DO Diagnoses at Discharge Discharge Diagnosis (1) Hypoxia: (2) COVID-19 determined by clinical diagnostic criteria: (3) Chronic kidney disease: Reason for Visit Reason for Visit: urgent care sent over/oxygen too low Hospital Course Hospital Course: 80 Y O F with PMH of HTN was admitted with c/o of worsening shortness of breath along with cough with whitish sputum as well as generalized fatigue,loss of appetite,nausea,headache,low grade fever.Symptoms started 10 days prior to the admission.During this hospital stay she was diagnosed with COVID PNA.She was kept on COVID protocol ( Remdesivir as well as Decadron ) along with symptomatic management.Initially she required supplemental oxygen 2-3 L to maintain a saturation above 90 %.But at the time of discharge she was saturating well on R.A. She responded well to the current medical management and was discharged in stable condition. Physical Exam Const: COMMON NORMALS: patient oriented x3 HENMT: COMMON NORMALS: normocephalic, atraumatic, hearing grossly normal bilaterally and external ears normal HEAD & SCALP: normocephalic and atraumatic EXTERNAL EAR: Yes external ears normal Eye: COMMON NORMALS: no scleral icterus GENERAL EYE: appearance normal, both eyes and all related structures Chest: COMMONS NORMALS: normal inspection of the chest and normal palpation of entire chest wall CHEST: Yes Symmetrical chest wall rise Resp: COMMON NORMALS: normal respiratory effort, No retractions, No use of accessory muscles and clear to auscultation bilaterally EFFORT & INSPECTION: Yes symmetric chest movement AUSCULTATION: clear to auscultation bilaterally Cardio: COMMON NORMALS: regular rate, regular rhythm, S1 normal heart sound present, S2 normal heart sound present, No gallops present (Cardio), No murmurs present (Cardio), No rub (Cardio) and Peripheral pulses 2+ throughout RATE: regular rate RHYTHM: regular rhythm HEART SOUNDS: S1 normal heart sound present and S2 normal heart sound present PERIPHERAL PULSES: Peripheral pulses 2+ throughout GI: COMMON NORMALS: Normal to inspection, nondistended, normoactive bowel sounds present, Soft to palpation, non-tender, No hepatosplenomegaly present and no masses AUSCULTATION: Yes normoactive bowel sounds PALPATION: Yes Soft to palpation and Yes No hepatosplenomegaly present RECTAL EXAM: deferred Extremity: COMMON NORMALS: no clubbing, cyanosis or edema and no pedal edema Neuro: COMMON NORMALS: patient oriented x3 Discharge Data Data Completed and Pending: Completed Studies During Hospitalization Category Date Time Status XR chest 1V [place] ble [id number] Stat Exams 08/21/20 18:39 Completed Pending at discharge Category Date Time Status CBC Auto Diff [Co mplete Blood Count w/Auto] AM LABS Lab 08/26/20 04:00 Ordered CMP [Comprehensiv e Metabolic Panel] AM LABS Lab 08/26/20 04:00 Ordered Labs from last 24 hours 08/25/20 08/25/20 08/25/20 06:28 03:59 03:59 WBC 9.0 RBC 4.47 Hgb 12.6 Hct 39.5 MCV 88.4 MCH 28.2 MCHC 31.9 RDW 13.7 Plt Count 194 MPV 10.4 Neut % (Auto) 78.8 Lymph % (Auto) 11.4 Cherry % (Auto) 5.3 Eos % (Auto) 0.0 Baso % (Auto) 0.1 Neut # (Auto) 7.09 Lymph # (Auto) 1.0 Cherry # (Auto) 0.5 Eos # (Auto) 0.0 Baso # (Auto) 0.0 Nucleated RBC % (a uto) 0 Nucleated RBCs # 0.0 Sodium 139 Potassium 5.1 Chloride 104 Carbon Dioxide 27 Anion Gap 13.1 BUN 33 H Creatinine 1.2 H GFR Calculation Not Reportable Glucose 136 H POC Glucose 123 Calculated Osmolal ity 297 H Calcium 9.2 Total Bilirubin 0.3 AST 26 ALT 29 Alkaline Phosphata se 79 Total Protein 6.5 L Albumin 3.2 L Globulin 3.3 08/24/20 08/24/20 08/24/20 20:56 17:06 12:57 WBC RBC Hgb Hct MCV MCH MCHC RDW Plt Count MPV Neut % (Auto) Lymph % (Auto) Cherry % (Auto) Eos % (Auto) Baso % (Auto) Neut # (Auto) Lymph # (Auto) Cherry # (Auto) Eos # (Auto) Baso # (Auto) Nucleated RBC % (a uto) Nucleated RBCs # Sodium Potassium Chloride Carbon Dioxide Anion Gap BUN Creatinine GFR Calculation Glucose POC Glucose 281 169 135 Calculated Osmolal ity Calcium Total Bilirubin AST ALT Alkaline Phosphata se Total Protein Albumin Globulin Vitals: Last Vital Signs Temp 97.6 F 08/25/20 08:00 Pulse 68 08/25/20 09:16 Resp 18 08/25/20 09:16 BP 134/69 08/25/20 08:00 Pulse Ox 99 08/25/20 09:16 Discharge Plan Discharge Patient Disposition: Home Condition: Stable Prescriptions: New fluticasone propionate 50 mcg/actuation [place],Suspension 1 spray nasal BID 30 Days RF: 0 Decadron 4 mg tablet 4 mg PO DAILY Qty: 7 RF: 0 budesonide 90 mcg/actuation aerosol powdr breath activated 2 inh INHALATION Q12H Qty: 1 RF: 0 Continued omeprazole 40 mg capsule,delayed release(DR/EC) 40 mg PO DAILY Qty: 30 RF: 11 metoprolol succinate 25 mg capsule,sprinkle,ER 24hr 25 mg PO DAILY Qty: 30 RF: 11 sertraline 50 mg tablet 25 mg PO DAILY Qty: 90 RF: 3 rosuvastatin 40 mg tablet See Rx Instructions .ROUTE .COMPLEX Qty: 90 RF: 11 bumetanide 0.5 mg tablet See Rx Instructions .ROUTE .COMPLEX Qty: 90 RF: 11 Discontinued azithromycin 250 mg tablet See Rx Instructions PO .COMPLEX Qty: 6 RF: 0 prednisone 20 mg tablet 40 mg PO DAILY 5 Days Qty: 10 RF: 0 Discharge Orders: Discharge Order (Routine); Ordered 08/25/20 Ordered By: Wisam Nelson Referrals: [facility] [Outside] Jackson Valerio DO [Primary Care Provider] - 4-7 days (Please call Wednesday to schedule a follow up/virtual appointment.) Discharge Diet: Usual diet Discharge Activity: Increase activity as tolerated Patient Instructions: Fluticasone (By breathing), Budesonide (By breathing), Dexamethasone (By mouth), Using Oxygen at Home (GEN), Hypoxia (GEN), Pneumonia Stoplight, Pneumonia - Viral Discharge Date/Time: 08/25/20 13:31 Discharge Attestations Time Spent in Discharge Care*: greater than 30 min Specific Discharge Activities: Specific discharge activities: educating patient, educating and/or supporting family/caregiver, discussing with pcp/other providers, discussing with leather case finisher/social workers/dc planners, documenting/other paperwork and evaluating patient/reviewing data Status at Discharge: Cognitive status at discharge: cognitively intact, Behavioral status at discharge: cooperative, Functional status at discharge: independent ambulation Overall status at discharge: patient is back to baseline Quality Metrics Clinical Quality Measures During this hospital stay, did patient experience: None Coding 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
[2020-08-25 13:01] LABS: Glucose Point of Care 185 mg/dL (70-110)
--- NOTE | 2020-08-27 13:50 | PC.SOCIAL ---
Addendum entered by Manju Rawls 08/27/20 14:08: Patient is currently on oxygen, her niece Teresa who works at [employer] brought her oxygen for at home. This is not prescribed oxygen that I am aware of. Original Note: Visited with the patient on the phone. When asked if she had an appointment set up to see her PCP, she responded that she has an appointment for at 9:20 AM. She stated that she may need it sooner as she is still having trouble breathing and having shortness of breath, she stated her oxygen is dropping and her heart rate (40s) is dropping everytime she gets up and around. I was able to contact the . office (Dr. Valerio) and move her appointment to tomorrow at 10 AM. The patient was fine with this, I also spoke to the dr office about setting the patient up with HH and to check if she would now qualify for Oxygen. She did mention that the Dr (Hospitalist) was suppose to prescribe her Blood thinner medication as he has asked her to stop the baby aspirin at home. She was not discharged with bloodthinner medication. This fha underwriter will check on this. We went over the ways to help keep her immune system up, including eating and drinking well, keeping up with Dr. appointments and immunizations, staying away from stress, and resting well. We also spoke of ways to help prevent the Covid 19 spread which included proper hand washing, face covering, social distancing, sanitizing surfaces, turning head when coughing or sneezing. We also spoke of what symptoms to look for and when to be alarmed, these symptoms are; fever of 104 or higher, shortness of breath, trouble breathing, chest pain or discomfort lasting longer then 5 minutes, confusion or trouble waking up and blue lips or face. We also spoke of plasma donation, information will be mailed to the patient.
--- NOTE | 2020-08-27 14:07 | PC.SOCIAL ---
Patient did state that she is on oxygen now, her niece Teresa from [employer] brought her some, it is not prescribed to her by a doctor.
--- NOTE | 2020-08-27 14:19 | PC.SOCIAL ---
Spoke with Manju after her follow up call regarding a few concerns. Patient did not qualify for O2 based on O2 eval here. 6 min exercise test her O2 was at 94%. Today patient reported her O2 dropped to 80% with her walking to the bathroom and pulse dropped in the 40's. She does have O2 at home that was brought to her by a friend that works at a [employer]. She put this on and O2 came up to above 90%. She indicates she does not feel well. Since this episode this am she has been keeping the O2 on due to her O2 drops in upper 80's when she takes it off at all. Concern is for PE. Discussed case with Dr Nelson. He indicates she was not dc'd on anticoagulant since she was not requiring O2 did will on O2 home evaluation and she was overall improving. We discussed it could take longer to get her in for a CTA if this is done as outpatient. This nurse discussed option with Dr Nelson. Decision made to have her return to ED to assess for DVT/ PE and determine if she should be started on Eliquis etc. Dr Kincaid agreed she should come back for evaluation. Called patient and explained to her that it is highly recommended she return to ED today to complete testing to ensure she does not have a clot. She verbalized understanding. She does not live close so it will be awhile before she can arrive. Updated Manju and she will verify in am if patient is admitted and if so will rescheduled her appt with Dr Valerio.
== END 2020-08-25 13:31 | disposition home or self-care (01) | DRG 177 ==
LOC: ER 21:00 → MEDSURG 21:16
PROVIDERS: Family Medicine; Admitting Provider Internal Medicine; PCP Family Medicine; Visit Provider Internal Medicine
DX: U07.1 COVID-19 (principal); J12.89 Other viral pneumonia; J96.01 Acute respiratory failure with hypoxia; N18.9 Chronic kidney disease, unspecified; I12.9 Hypertensive chronic kidney disease with stage 1 through stage 4 chronic kidney disease, or unspecified chronic kidney disease; G89.29 Other chronic pain; M54.9 Dorsalgia, unspecified; F32.9 Major depressive disorder, single episode, unspecified; E78.5 Hyperlipidemia, unspecified; R00.0 Tachycardia, unspecified
CPT/HCPCS: 12345; 36415; 36416; 36592; 71045; 80053; 81001; 82728; 82962; 83605; 83615; 84145; 84484; 85025; 85378; 85384; 85651; 86140; 87426; 87635; 96372; 96375; 99284; G0378; J1100; J1644; J1815; J3535; J7030; J8540

== ENCOUNTER 2020-08-27 15:52 | Emergency (ER) | payer MEDICARE, SELFPAY ==
[2020-08-27 15:58] VITALS: BP 131/67; PULSE 61; RESP 14; TEMP 36.9; O2SAT 94; BMI 33.0
--- NOTE | 2020-08-27 16:06 | ECG_ITS ---
[facility] Test Date: 2020-08-27 Pat Name: Marlen Francis Department: Room: Gender: Female Nurse Aide: : 1940 Requested By: Samson Crouch Order Number: [id number] Reading MD: Measurements Intervals Feura Bush Rate: 60 P: 23 WY: 159 QRS: -33 QRSD: 88 T: 57 QT: 401 QTc: 402 Interpretive Statements SINUS RHYTHM LEFT AXIS DEVIATION [QRS AXIS < -30] S1-S2-S3 PATTERN, CONSISTENT WITH PULMONARY DISEASE, RVH, OR NORMAL VARIANT PATTERN CONSISTENT WITH PULMONARY DISEASE No previous ECG available for comparison [id number]
--- NOTE | 2020-08-27 16:06 | XR_ITS ---
WS: [id number] Exam: XR chest 1V portable [id number] Date/Time of Exam: 08/27/2020 4:06 PM Reason For Exam: sob Findings: Comparison 08/21/2020. Subtle infiltrates and areas of plaque atelectasis noted in the right lung and possibly the mid left lung. No pleural effusion. The lungs are fully expanded. Normal cardiomediastinal structures and bony elements. XR/XR chest 1V portable [id number] IMPRESSION: 1. Minimal infiltrates and areas of plaque atelectasis noted bilaterally. Devel oping pneumonia is considered likely.
--- NOTE | 2020-08-27 16:06 | ED_ITS ---
HPI - COVID General: Chief Complaint: COVID symptoms Stated Complaint: COVID, SOB Time Seen by Provider: 08/27/20 15:57 Source: patient Mode of arrival: ambulatory Limitations: no limitations Triage information: Has fever, cough or shortness of breath . Exposure to COVID + person last 14 days History of Present Illness: HPI Narrative: 80-year-old female who was recently discharged from the viral ICU here with Covid. Patient tested positive a little over a week ago. States she was doing much better but today started having shortness of breath again. Her pulse ox here is 94% on room air. She is concerned possibly of pulmonary embolism. She denies any recent fever. She has been using inhaler at home and oxygen as needed. COVID 19 common symptoms: positive dyspnea; negative fever(s), chills, body aches, headache(s), throat pain, nausea, vomiting or diarrhea COVID 19 other sytmptoms: negative chest pain COVID Results: SARS-CoV-2 Antigen (Rapid) Positive (Negative) H 08/21/20 17:48 08/21/20 SARS-CoV-2 RNA (RT-PCR) Detected (NOT DETECTED) A 08/21/20 10:16 08/21/20 Review of Systems Const: Denies: fever(s), chills, body aches or change in appetite Eyes: Denies: blurry vision or eye discomfort ENMT: Denies: throat pain or dental pain Card: Denies: chest pain Resp: Reports: dyspnea GI: Denies: abdominal pain, nausea, vomiting or diarrhea : Denies: dysuria Musc: Denies: neck pain or back pain Skin/Breast: Denies: rash Neuro: Denies: headache(s) Psych: Denies: depression Jose/Lymph: Denies: easy bruising All/Imm: Denies: urticaria PFSH ED PFSH: Medical History Bulging lumbar disc Chronic back pain Chronic kidney disease COVID-19 determined by clinical diagnostic criteria Depression Hip pain History of cancer of left breast Hyperlipemia Hypoxia Irregular heart beat Pyelonephritis Reflux esophagitis Right shoulder pain Surgical History History of bunionectomy 3x both feet History of cataract extraction History of cholecystectomy History of eye surgery left History of knee replacement bilateral Family History Father CAD (coronary artery disease) Mother CAD (coronary artery disease) Social History Smoking and tobacco status: never smoked Alcohol intake: never Household members: spouse Housing: House Current occupational status: retired Physical Exam Const: COMMON NORMALS: no acute distress, patient oriented x3 and healthy appearing HENMT: COMMON NORMALS: normocephalic and atraumatic HEAD & SCALP: normocephalic and atraumatic Eye: COMMON NORMALS: Equal, round and reactive pupils present and EOMs intact bilaterally PUPIL: Yes Equal, round and reactive pupils present Neck/C-Spine: COMMON NORMALS: full ROM and supple Chest: COMMONS NORMALS: normal inspection of the chest and normal palpation of entire chest wall Resp: COMMON NORMALS: normal respiratory effort, No retractions, No use of accessory muscles and clear to auscultation bilaterally AUSCULTATION: clear to auscultation bilaterally Cardio: COMMON NORMALS: regular rate, regular rhythm and No murmurs present (Cardio) RATE: regular rate RHYTHM: regular rhythm GI: COMMON NORMALS: Normal to inspection, nondistended, normoactive bowel sounds present, Soft to palpation, non-tender and no masses PALPATION: Yes Soft to palpation Extremity: COMMON NORMALS: normal to inspection and full ROM Neuro: COMMON NORMALS: patient oriented x3, moves all extremities and no focal motor deficits Psych: COMMON NORMALS: mental status grossly normal, Normal thought process present and cooperative THOUGHT PROCESS: Normal thought process present Skin: COMMON NORMALS: no rashes or lesions noted and no wounds GENERAL SKIN EXAM: no rashes or lesions noted Course Vital Signs: Vital signs: Vital Signs Temperature 98.4 F 08/27/20 15:58 Pulse Rate 77 08/27/20 20:20 Respiratory Rate 18 08/27/20 20:20 Blood Pressure 143/63 08/27/20 20:20 Pulse Oximetry 96 08/27/20 20:20 MDM - COVID MDM Narrative Medical decision making narrative: Patient presents here with COVID-19. She does have shortness of breath that is likely ongoing from her Covid. Patient's pulse ox here has been 96% on room air. CT scan shows no signs of pulmonary embolism. Patient is well-appearing here and is stable for discharge back home. She is to continue to monitor her pulse ox at home. She is to follow-up and return if worsening. Lab Data Result diagrams: 08/27/20 16:55 08/27/20 16:55 Labs: Lab Results 08/27/20 08/27/20 08/27/20 Range/Units 16:55 16:55 16:55 WBC 14.0 H (4.0-10.0) 10^3/uL RBC 4.78 (4.1-5.3) 10^6/uL Hgb 13.5 (11.5-15.3) g/dL Hct 41.8 (37.0-47.0) % MCV 87.4 (81-99) fL MCH 28.2 (28.0-34.0) pg MCHC 32.3 (30.0-36.0) g/dL RDW 14.0 (12.1-15.1) % Plt Count 277 (130-400) 10^3/cmm MPV 10.4 (7.4-10.4) fL Neut % (Auto) 85.4 % Lymph % (Auto) 6.6 % Riple[place] % (Auto) 3.6 % Eos % (Auto) 0.1 % Baso % (Auto) 0.2 % Neut # (Auto) 11.93 H (1.8-7.7) 10^3/uL Lymph # (Auto) 0.9 (0.8-4.8) 10^3/uL [place]ipley # (Auto) 0.5 (0.2-0.9) 10^3/uL Eos # (Auto) 0.0 (0.0-0.8) 10^3/uL Baso # (Auto) 0.0 (0.0-0.1) 10^3/uL Nucleated RBC % (auto) 0 % Nucleated RBCs # 0.0 /100WBC Fibrinogen 553 H (174-498) mg/dL D-Dimer 1.92 H (0-0.59) ug/mIFEU Sodium 134 L (136-145) mmol/L Potassium 4.6 (3.5-5.1) mmol/L Chloride 98 (98-107) mmol/L Carbon Dioxide 26 (22-29) mmol/L Anion Gap 14.6 (5-19) BUN 39 H (8-23) mg/dL Creatinine 1.3 H (0.5-0.9) mg/dL GFR Calculation Not Reportable Glucose 207 H (65-115) mg/dL Calculated Osmolality 293 (285-295) mOsm/kg Lactic Acid (0.5-2.2) mmol/L Calcium 9.5 (8.5-10.5) mg/dL Total Bilirubin 0.4 (0.15-1.2) mg/dL AST 23 (0-32) U/L ALT 29 (0-33) U/L Alkaline Phosphatase 93 (35-105) IU/L C-Reactive Protein 13.1 H (0.0-4.9) mg/L NT-Pro-B Natriuret Pep 211 (0-450) pg/mL Total Protein 7.1 (6.6-8.7) g/dL Albumin 3.6 (3.5-5.2) g/dL Globulin 3.5 (1.3-4.6) g/dL 08/27/20 Range/Units 16:55 WBC (4.0-10.0) 10^3/uL RBC (4.1-5.3) 10^6/uL Hgb (11.5-15.3) g/dL Hct (37.0-47.0) % MCV (81-99) fL MCH (28.0-34.0) pg MCHC (30.0-36.0) g/dL RDW (12.1-15.1) % Plt Count (130-400) 10^3/cmm MPV (7.4-10.4) fL Neut % (Auto) % Lymph % (Auto) % Ripley % (Auto) % Eos % (Auto) % Baso % (Auto) % Neut # (Auto) (1.8-7.7) 10^3/uL Lymph # (Auto) (0.8-4.8) 10^3/uL Ripley # (Auto) (0.2-0.9) 10^3/uL Eos # (Auto) (0.0-0.8) 10^3/uL Baso # (Auto) (0.0-0.1) 10^3/uL Nucleated RBC % (auto) % Nucleated RBCs # /100WBC Fibrinogen (174-498) mg/dL D-Dimer (0-0.59) ug/mIFEU Sodium (136-145) mmol/L Potassium (3.5-5.1) mmol/L Chloride (98-107) mmol/L Carbon Dioxide (22-29) mmol/L Anion Gap (5-19) BUN (8-23) mg/dL Creatinine (0.5-0.9) mg/dL GFR Calculation Glucose (65-115) mg/dL Calculated Osmolality (285-295) mOsm/kg Lactic Acid 0.9 (0.5-2.2) mmol/L Calcium (8.5-10.5) mg/dL Total Bilirubin (0.15-1.2) mg/dL AST (0-32) U/L ALT (0-33) U/L Alkaline Phosphatase (35-105) IU/L C-Reactive Protein (0.0-4.9) mg/L NT-Pro-B Natriuret Pep (0-450) pg/mL Total Protein (6.6-8.7) g/dL Albumin (3.5-5.2) g/dL Globulin (1.3-4.6) g/dL COVID Results: SARS-CoV-2 Antigen (Rapid) Positive (Negative) H 08/21/20 17:48 08/21/20 SARS-CoV-2 RNA (RT-PCR) Detected (NOT DETECTED) A 08/21/20 10:16 08/21/20 Imaging Data CXR: Radiologist's impression: [place] [address] XRay Report Signed Patient: Marlen Francis Unit #: [id number] : 1940 Age/Sex: 80 / F ADM Date: 08/27/20 Loc: ER Room/Bed: Attending Dr: Ordering Provider/Ordering MD: Samson Crouch MD Date of Service: 08/27/20 Procedure(s): XR chest 1V portable [id number] Accession Number(s): [id number] Report Number: [id number] WS: [id number] Exam: XR chest 1V portable [id number] Date/Time of Exam: 08/27/2020 4:06 PM Reason For Exam: sob Findings: Comparison 08/21/2020. Subtle infiltrates and areas of plaque atelectasis noted in the right lung and possibly the mid left lung. No pleural effusion. The lungs are fully expanded. Normal cardiomediastinal structures and bony elements. XR/XR chest 1V portable [id number] IMPRESSION: 1. Minimal infiltrates and areas of plaque atelectasis noted bilaterally. Developing pneumonia is considered likely. CT Chest: Radiologist's impression: [address] [place] [address] CT Scan Report Signed Patient: Marlen Francis Unit #: [id number] : 1940 ct#:[id number] Age/Sex: 80 / F ADM Date: 08/27/20 Loc: ER Room/Bed: Attending Dr: Ordering Provider/Ordering MD: Samson Crouch MD Date of Service: 08/27/20 Procedure(s): CT angio chest PE protcl [id number] Accession Number(s): [id number] Report Number: [id number] PROCEDURE INFORMATION: Exam: CT Angiography Chest With Contrast Exam date and time: 08/27/2020 6:13 PM Age: 80 years old Clinical indication: Shortness of breath; Patient HX: Covid +; Additional info: SOB TECHNIQUE: Imaging protocol: Computed tomographic angiography of the chest with intravenous contrast. 3D rendering (Not supervised by radiologist): MIP and/or 3D reconstructed images were created by the technologist. Radiation optimization: All CT scans at this facility use at least one of these dose optimization techniques: automated exposure control; mA and/or kV adjustment per patient size (includes targeted exams where dose is matched to clinical indication); or iterative reconstruction. Contrast material: VISI 320; Contrast volume: 71 ml; Contrast route: INTRAVENOUS (IV); COMPARISON: CR XR chest 1V portable [id number] 08/27/2020 4:08 PM RADIATION DOSE METRICS: Total DLP (mGy-cm): 562.65 FINDINGS: Pulmonary arteries: There is no evidence of filling defects within the pulmonary arterial circulation to suggest pulmonary embolism. Aorta: There is mild atherosclerotic change in the aortic arch and descending thoracic aorta. There is no aortic aneurysm. Lungs: There is mild degree of peripheral ground-glass opacity and consolidation, mainly posteriorly in the lower lobes consistent with the given history of COVID-19 infection. Pleural space: Unremarkable. No pneumothorax. No pleural effusion. Heart: Unremarkable. No cardiomegaly. No pericardial effusion. Lymph nodes: Unremarkable. No enlarged lymph nodes. Gallbladder and bile ducts: There has been a cholecystectomy. Bones/joints: There are old healed left rib fractures. Soft tissues: There has been a left mastectomy. There is a left silicone breast implant with findings of capsular calcifications in intracapsular rupture. CT/CT angio chest PE protcl [id number] IMPRESSION: 1. Findings consistent with a history of COVID-19. 2. No evidence of pulmonary embolism. EKG Data EKG 1: Attestation: I personally reviewed and interpreted this EKG as follows: EKG interpretation date: 08/27/20 EKG interpretation time: 16:30 Interpretation: nsr hr [address] or t wave abnormalities qrs 88 qtc 402 Discharge Plan Discharge Patient Disposition: Home Clinical Impression: Pneumonia due to 2019-nCoV Condition: Stable Prescriptions: No Action omeprazole 40 mg capsule,delayed release(DR/EC) 40 mg PO DAILY Qty: 30 RF: 11 metoprolol succinate 25 mg capsule,sprinkle,ER 24hr 25 mg PO DAILY Qty: 30 RF: 11 sertraline 50 mg tablet 25 mg PO DAILY Qty: 90 RF: 3 bumetanide 0.5 mg tablet See Rx Instructions .ROUTE .COMPLEX Qty: 90 RF: 11 fluticasone propionate 50 mcg/actuation [place],Suspension 1 spray nasal BID 30 Days RF: 0 budesonide 90 mcg/actuation aerosol powdr breath activated 2 inh INHALATION Q12H Qty: 1 RF: 0 rosuvastatin 40 mg tablet 40 mg PO DAILY RF: 0 Discharge Orders: Discharge Order (Routine); Ordered 08/27/20 Ordered By: Samson Crouch Referrals: Jackson Valerio DO [Primary Care Provider] - 1-3 days Discharge Diet: Advance as tolerated Discharge Activity: Resume usual activity Patient Instructions: Upper Respiratory Infection (ED) Coding Level of Care Code ED Ship'S Cook for Chg Fwd Exam Comprehensive
[2020-08-27 16:58] VITALS: O2SAT 96
[2020-08-27 17:07] LABS: Basophils % 0.2 %; Eosinophils % 0.1 %; Hematocrit 41.8 % (37.0-47.0); Hemoglobin 13.5 g/dL (11.5-15.3); Lymphocytes # 0.9 10^3/uL (0.8-4.8); Lymphocytes % 6.6 %; Mean Corpuscular HGB Conc 32.3 g/dL (30.0-36.0); Mean Corpuscular Hemoglobin 28.2 pg (28.0-34.0); Mean Corpuscular Volume 87.4 fL (81-99); Mean Platelet Volume 10.4 fL (7.4-10.4); Monocytes # 0.5 10^3/uL (0.2-0.9); Monocytes % 3.6 %; Neutrophils # 11.93 10^3/uL (1.8-7.7); Neutrophils % 85.4 %; Nucleated Red Blood Cells % 0 %; Platelet Count 277 10^3/cmm (130-400); Red Blood Count 4.78 10^6/uL (4.1-5.3)
[2020-08-27 17:19] LABS: D Dimer 1.92 ug/mIFEU (0-0.59)
--- NOTE | 2020-08-27 17:21 | CTR_ITS ---
PROCEDURE INFORMATION: Exam: CT Angiography Chest With Contrast Exam date and time: 08/27/2020 6:13 PM Age: 80 years old Clinical indication: Shortness of breath; Patient HX: Covid +; Additional info: SOB TECHNIQUE: Imaging protocol: Computed tomographic angiography of the chest with intravenous contrast. 3D rendering (Not supervised by radiologist): MIP and/or 3D reconstructed images were created by the technologist. Radiation optimization: All CT scans at this facility use at least one of these dose optimization techniques: automated exposure control; mA and/or kV adjustment per patient size (includes targeted exams where dose is matched to clinical indication); or iterative reconstruction. Contrast material: VISI 320; Contrast volume: 71 ml; Contrast route: INTRAVENOUS (IV); COMPARISON: CR XR chest 1V portable [id number] 08/27/2020 4:08 PM RADIATION DOSE METRICS: Total DLP (mGy-cm): 562.65 FINDINGS: Pulmonary arteries: There is no evidence of filling defects within the pulmonary arterial circulation to suggest pulmonary embolism. Aorta: There is mild atherosclerotic change in the aortic arch and descending thoracic aorta. There is no aortic aneurysm. Lungs: There is mild degree of peripheral ground-glass opacity and consolidation, mainly posteriorly in the lower lobes consistent with the given history of COVID-19 infection. Pleural space: Unremarkable. No pneumothorax. No pleural effusion. Heart: Unremarkable. No cardiomegaly. No pericardial effusion. Lymph nodes: Unremarkable. No enlarged lymph nodes. Gallbladder and bile ducts: There has been a cholecystectomy. Bones/joints: There are old healed left rib fractures. Soft tissues: There has been a left mastectomy. There is a left silicone breast implant with findings of capsular calcifications in intracapsular rupture. CT/CT angio chest PE protcl [id number] IMPRESSION: 1. Findings consistent with a history of COVID-19. 2. No evidence of pulmonary embolism. Radiation Dose CTDIVOL = (mGy): DLP = 562.65 (mGy-cm)
[2020-08-27 17:23] LABS: Lactic Sepsis W/Reflex 0.9 mmol/L (0.5-2.2)
[2020-08-27 17:46] LABS: Alanine Aminotransferase 29 U/L (0-33); Albumin Level 3.6 g/dL (3.5-5.2); Alkaline Phosphatase 93 IU/L (35-105); Anion Gap 14.6 (5-19); Aspartate Amino Transferase 23 U/L (0-32); Blood Urea Nitrogen 39 mg/dL (8-23); Calcium 9.5 mg/dL (8.5-10.5); Carbon Dioxide 26 mmol/L (22-29); Chloride 98 mmol/L (98-107); Globulin 3.5 g/dL (1.3-4.6); Glucose 207 mg/dL (65-115); NT Pro B Type Natriuretic Pept 211 pg/mL (0-450); Osmolality Calculated 293 mOsm/kg (285-295); Potassium 4.6 mmol/L (3.5-5.1); Sodium 134 mmol/L (136-145); Total Bilirubin 0.4 mg/dL (0.15-1.2); Total Protein 7.1 g/dL (6.6-8.7)
[2020-08-27 18:09] LABS: Fibrinogen 553 mg/dL (174-498)
[2020-08-27 18:38] LABS: C Reactive Protein 13.1 mg/L (0.0-4.9)
[2020-08-27 19:15] VITALS: BP 162/82; PULSE 68; RESP 18; O2SAT 95
[2020-08-27] MEDS: iodixanol 320 mg/mL 100mL Btl IV (19:57)
[2020-08-27 20:20] VITALS: BP 143/63; PULSE 77; RESP 18; O2SAT 96
[2020-08-27 20:51] VITALS: BP 138/65; PULSE 77; RESP 18; TEMP 36.9; O2SAT 96
[2020-08-27 21:54] VITALS: BP 132/66; PULSE 74; RESP 18; TEMP 36.9; O2SAT 96
== END 2020-08-27 21:56 | disposition home or self-care (01) ==
PROVIDERS: Emergency Provider Emergency Medicine; PCP Family Medicine
DX: U07.1 COVID-19 (principal); J12.89 Other viral pneumonia; E78.5 Hyperlipidemia, unspecified; Z85.3 Personal history of malignant neoplasm of breast
CPT/HCPCS: 12345; 71045; 71275; 80053; 83605; 83880; 85025; 85378; 85384; 86140; 93005; 99283; Q9967

== ENCOUNTER 2020-10-02 22:44 | Observation (INO) | payer MEDICARE, SELFPAY ==
[2020-10-02 22:49] VITALS: BP 142/115; PULSE 92; RESP 17; TEMP 36.8; O2SAT 93; BMI 34.1
--- NOTE | 2020-10-02 23:15 | XR_ITS ---
WS: [id number] Portable AP upright chest, 10/02/2020 Clinical Data: Chest pain Comparison: Portable chest, 08/27/2020. Findings: No nodules, masses or effusions are seen. The heart is normal. The pulmonary vascularity is not increased. No pneumonia or pneumothorax is seen. The aortic arch and descending aorta are minima lly tortuous. Monitoring leads are on the chest wall. XR/XR chest 1V portable [id number] Impression: Atherosclerosis.
--- NOTE | 2020-10-02 23:26 | W.ED.CHESTPA ---
HPI - Chest Pain General: Chief Complaint: Chest Pain Stated Complaint: chest pain/ high blood pressure Time Seen by Provider: 10/02/20 23:08 Source: patient Mode of arrival: ambulatory Limitations: no limitations History of Present Illness: HPI narrative: Marlen is a very nice 80-year-old female who comes in with a complaint of palpitations and chest discomfort with high blood pressure. The symptoms have started every time she uses a breathing treatment. The patient was treated in the hospital in August for Covid 19 infection. The patient has had problems even since being cleared and recently saw a glass blower in [place]. Farm Contractor elected to put her on oxygen and give her breathing treatments. The patient states every time she uses her breathing treatments she gets the palpitations which makes her chest feel uncomfortable and she checks her blood pressure and finds it to be in the 170s. This is happened twice now and she called the nurse advice line at home and was instructed to come to the hospital to be evaluated. Currently the patient has no complaints or pain. Associated symptoms: Reports palpitations; Deny abdominal pain, diaphoresis, dyspnea, fever(s), nausea, syncope or vomiting Review of Systems Const: Denies: fever(s), chills, body aches, fatigue, malaise or diaphoresis Eyes: Denies: change in vision, blurry vision, photophobia, eye discomfort, eye discharge, eye redness or yellow eyes ENMT: Denies: throat pain, odynophagia, hoarseness, swelling of lips/tongue, ear or mastoid pain, ear discharge, change in hearing or nasal discharge Card: Reports: chest pain, palpitations and irregular heart rhythm; Denies: edema, lightheadedness, syncope, pre-syncope, dyspnea on exertion or orthopnea Resp: Denies: dyspnea, productive cough, non-productive cough, wheezing, hemoptysis or chest congestion GI: Denies: abdominal pain, nausea, vomiting, hematemesis, coffee ground emesis, heartburn, diarrhea, constipation, GI cramping, hematochezia or melena : Denies: flank pain, dysuria, urinary frequency, urinary urgency or hematuria Musc: Denies: neck pain, back pain, extremity pain, extremity swelling, joint pain, joint swelling, joint redness, joint warmth or joint stiffness Skin/Breast: Denies: rash, pruritus, erythema, skin pain or skin tenderness Neuro: Denies: headache(s), numbness in extremities, weakness in extremities, sensory changes, lack of coordination, difficulty walking, dizziness, vertigo, confusion, Slurred speech present or seizure-like activity Jose/Lymph: Denies: easy bruising, easy bleeding, petechiae, purpura or enlarged lymph nodes All/Imm: Denies: urticaria, throat swelling, tongue swelling, facial swelling or acute wheezing PFSH ED PFSH: Medical History (Updated 10/03/20 @ 01:55 by Camille Hartman) Bulging lumbar disc Chronic back pain Chronic kidney disease COVID-19 determined by clinical diagnostic criteria Depression Hip pain History of cancer of left breast Hyperlipemia Hypoxia Irregular heart beat Pyelonephritis Reflux esophagitis Right shoulder pain Surgical History History of bunionectomy 3x both feet History of cataract extraction History of cholecystectomy History of eye surgery left History of knee replacement bilateral Family History Father CAD (coronary artery disease) Mother CAD (coronary artery disease) Social History Smoking and tobacco status: never smoked Alcohol intake: never Household members: spouse Housing: House Current occupational status: retired Physical Exam Const: COMMON NORMALS: no acute distress, patient oriented x3, no limitations and alert GENERAL APPEARANCE: cooperative HENMT: COMMON NORMALS: normocephalic, atraumatic, external ears normal, EAC's normal and Normal external nose present HEAD & SCALP: normal to inspection, normocephalic and atraumatic FACE & SINUS: normal facial exam and face symmetric NOSE: Normal external nose present and Normal nares present EXTERNAL EAR: Yes external ears normal EXTERNAL AUDITORY CANAL: EAC's normal MOUTH: Normal oral and palatal mucosa present, lip normal and tongue normal Eye: COMMON NORMALS: Equal, round and reactive pupils present and conjunctivae normal GENERAL EYE: appearance normal, both eyes and all related structures ALIGNMENT: Yes alignment normal PERIORBITAL: periorbital findings normal EYELID: eyelids normal CONJUNCTIVA: Yes conjunctivae normal SCLERA: sclerae normal PUPIL: Yes Equal, round and reactive pupils present Neck/C-Spine: COMMON NORMALS: full ROM, no lymphadenopathy, supple, no meningeal signs and no JVD GENERAL: Yes normal visual inspection and Yes trachea midline Chest: COMMONS NORMALS: normal inspection of the chest and normal palpation of entire chest wall Resp: COMMON NORMALS: normal respiratory effort, No retractions, No use of accessory muscles and clear to auscultation bilaterally EFFORT & INSPECTION: Yes able to speak in complete sentences and Yes symmetric chest movement AUSCULTATION: clear to auscultation bilaterally, no crackles, no rales, no rhonchi and no wheezes Cardio: COMMON NORMALS: no JVD, regular rate, regular rhythm, S1 normal heart sound present and S2 normal heart sound present RATE: regular rate RHYTHM: regular rhythm HEART SOUNDS: S1 normal heart sound present, S2 normal heart sound present, no click, no gallops, no murmurs and no rubs GI: COMMON NORMALS: Soft to palpation and No hepatosplenomegaly present PALPATION: Yes Soft to palpation, No Tenderness to palpation present (GI), No Guarding due to palpation present (GI), No Rigid due to palpation, Yes No hepatosplenomegaly present, No Hernia present, No Palpable mass present and No Pulsatile mass present RECTAL EXAM: visual inspection normal, normal sphincter tone and No heme positive stool OTHER: Hemoccult negative light brown stool. : COMMON NORMALS: Yes no CVA tenderness BLADDER/KIDNEY EXAM: Yes no CVA tenderness EXTERNAL FEMALE EXAM: No Hernia present Back/Pelvis: COMMON NORMALS: no CVA tenderness, thoracic and lumbar spine normal to inspection, no thoracic nor lumbar tenderness and thoraco-lumbar ROM normal Extremity: COMMON NORMALS: normal to inspection, full ROM, capillary refill normal, no joint enlargement, no clubbing, cyanosis or edema and no calf tenderness Neuro: COMMON NORMALS: patient oriented x3, CN's II-XII intact bilaterally, moves all extremities, no focal motor deficits and no sensory deficits noted SENSORIUM/ORIENTATION: Yes alert MENINGEAL SIGNS: Yes no meningeal signs SPEECH: speech normal Psych: COMMON NORMALS: mental status grossly normal, Normal thought process present, cooperative, normal affect, speech normal and activity/motor behavior normal SPEECH: Yes normal speech THOUGHT PROCESS: Normal thought process present Skin: COMMON NORMALS: no rashes or lesions noted, turgor normal, no jaundice, no petechiae and no mottling GENERAL SKIN EXAM: no rashes or lesions noted and turgor normal Course Vital Signs: Vital signs: Vital Signs Temperature 98.3 F 10/02/20 22:49 Pulse Rate 88 10/03/20 01:00 Respiratory Rate 18 10/03/20 01:00 Blood Pressure 175/57 10/03/20 01:00 Pulse Oximetry 94 10/03/20 01:00 MDM - Chest Pain MDM Narrative: Medical decision making narrative: The patient's CT scan shows diffuse segmental pulmonary emboli and every lobe of the lungs. She has a high patchy score of 110. I did discuss the case with Dr. Jaime, on-call for pulmonology at [facility]. He does not believe the patient is a candidate for thrombolysis. He states that she is not tachycardic and not hypoxic at rest. She is not unstable and she not hypotensive. He believes that her age is unlikely to be helpful. He recommends anticoagulation. I have given the patient dose of Lovenox after she had a negative Hemoccult. She does have a new anemia although she is only half a gram down from her normal. Patient denies any black tarry stools or blood in her stool. The case was reviewed with Dr. Nelson he agrees to admit the patient. Lab Data: Attestation: I reviewed the patient's lab results. Labs: Lab Results 10/02/20 10/02/20 10/02/20 Range/Units 23:25 23:25 23:25 WBC 9.2 (4.0-10.0) 10^3/ uL RBC 3.81 L (4.1-5.3) 10^6/u L Hgb 11.0 L (11.5-15.3) g/dL Hct 34.2 L (37.0-47.0) % MCV 89.8 (81-99) fL MCH 28.9 (28.0-34.0) pg MCHC 32.2 (30.0-36.0) g/dL RDW 15.1 (12.1-15.1) % Plt Count 145 (130-400) 10^3/c mm MPV 11.2 H (7.4-10.4) fL Neut % (Auto) 87.5 % Lymph % (Auto) 6.0 % [place] % (Auto) 5.8 % Eos % (Auto) 0.2 % Baso % (Auto) 0.1 % Neut # (Auto) 8.01 H (1.8-7.7) 10^3/u L Lymph # (Auto) 0.6 L (0.8-4.8) 10^3/u L [place] # (Auto) 0.5 (0.2-0.9) 10^3/u L Eos # (Auto) 0.0 (0.0-0.8) 10^3/u L Baso # (Auto) 0.0 (0.0-0.1) 10^3/u L Nucleated RBC % (a uto) 0 % Nucleated RBCs # 0.0 /100WBC D-Dimer 3.14 H (0-0.59) ug/mIFE U Specimen Type Sample Site ABG pH (7.35-7.45) ABG pCO2 (35-45) mmHg ABG pO2 (80.0-100.0) mmH g ABG HCO3 (22-26) mmol/L ABG Base Excess (-2.0-2.0) mmol/ L Kaveh Test Hematocrit (37-47) % O2 Delivery Device O2 Liters/Min % Specimen Drawn By [employer] Equipment Operator ID Sodium 138 (136-145) mmol/L Potassium 4.3 (3.5-5.1) mmol/L Chloride 101 (98-107) mmol/L Carbon Dioxide 26 (22-29) mmol/L Anion Gap 15.3 (5-19) BUN 15 (8-23) mg/dL Creatinine 1.1 H (0.5-0.9) mg/dL GFR Calculation Not Reportable Glucose 257 H (65-115) mg/dL Calculated Osmolal ity 296 H (285-295) mOsm/k g Calcium 8.7 (8.5-10.5) mg/dL Magnesium 1.8 (1.7-2.3) mg/dL Total Bilirubin 0.3 (0.15-1.2) mg/dL AST 18 (0-32) U/L ALT 20 (0-33) U/L Alkaline Phosphata se 85 (35-105) IU/L Troponin T Baselin e (0-10) ng/L Troponin T 120 Min augustine (0-10) ng/L Delta Troponin T (0-10) ABS# NT-Pro-B Natriuret Pep (0-450) pg/mL Total Protein 5.9 L (6.6-8.7) g/dL Albumin 3.6 (3.5-5.2) g/dL Globulin 2.3 (1.3-4.6) g/dL TSH 0.67 (0.27-4.20) uIU/ mL Urine Color (Yellow) Urine Appearance (CLEAR) Urine pH (5-7) Ur Specific Gravit y (1.005-1.030) Urine Protein (Negative) Urine Glucose (UA) (Normal) Urine Ketones (Negative) Urine Blood (Negative) Urine Nitrate (Negative) Urine Bilirubin (Negative) Urine Urobilinogen (Negative) mg/dL Ur Leukocyte Criselda ase (Negative) 10/02/20 10/02/20 10/03/20 Range/Units 23:25 23:42 01:20 WBC (4.0-10.0) 10^3/ uL RBC (4.1-5.3) 10^6/u L Hgb (11.5-15.3) g/dL Hct (37.0-47.0) % MCV (81-99) fL MCH (28.0-34.0) pg MCHC (30.0-36.0) g/dL RDW (12.1-15.1) % Plt Count (130-400) 10^3/c mm MPV (7.4-10.4) fL Neut % (Auto) % Lymph % (Auto) % [place] % (Auto) % Eos % (Auto) % Baso % (Auto) % Neut # (Auto) (1.8-7.7) 10^3/u L Lymph # (Auto) (0.8-4.8) 10^3/u L [place] # (Auto) (0.2-0.9) 10^3/u L Eos # (Auto) (0.0-0.8) 10^3/u L Baso # (Auto) (0.0-0.1) 10^3/u L Nucleated RBC % (a uto) % Nucleated RBCs # /100WBC D-Dimer (0-0.59) ug/mIFE U Specimen Type Sample Site ABG pH (7.35-7.45) ABG pCO2 (35-45) mmHg ABG pO2 (80.0-100.0) mmH g ABG HCO3 (22-26) mmol/L ABG Base Excess (-2.0-2.0) mmol/ L Kaveh Test Hematocrit (37-47) % O2 Delivery Device O2 Liters/Min % Specimen Drawn By [employer] Equipment Operator ID Sodium (136-145) mmol/L Potassium (3.5-5.1) mmol/L Chloride (98-107) mmol/L Carbon Dioxide (22-29) mmol/L Anion Gap (5-19) BUN (8-23) mg/dL Creatinine (0.5-0.9) mg/dL GFR Calculation Glucose (65-115) mg/dL Calculated Osmolal ity (285-295) mOsm/k g Calcium (8.5-10.5) mg/dL Magnesium (1.7-2.3) mg/dL Total Bilirubin (0.15-1.2) mg/dL AST (0-32) U/L ALT (0-33) U/L Alkaline Phosphata se (35-105) IU/L Troponin T Baselin e 25 H (0-10) ng/L Troponin T 120 Min augustine 30.74 H (0-10) ng/L Delta Troponin T 5.74 (0-10) ABS# NT-Pro-B Natriuret Pep (0-450) pg/mL Total Protein (6.6-8.7) g/dL Albumin (3.5-5.2) g/dL Globulin (1.3-4.6) g/dL TSH (0.27-4.20) uIU/ mL Urine Color Yellow (Yellow) Urine Appearance Clear (CLEAR) Urine pH 5.0 (5-7) Ur Specific Gravit y 1.010 (1.005-1.030) Urine Protein Neg (Negative) Urine Glucose (UA) 4+ H (Normal) Urine Ketones Negative (Negative) Urine Blood Neg (Negative) Urine Nitrate Negative (Negative) Urine Bilirubin Neg (Negative) Urine Urobilinogen Norm (Negative) mg/dL Ur Leukocyte Criselda ase Negative (Negative) 10/03/20 10/03/20 Range/Units 01:20 01:23 WBC (4.0-10.0) 10^3/ uL RBC (4.1-5.3) 10^6/u L Hgb (11.5-15.3) g/dL Hct (37.0-47.0) % MCV (81-99) fL MCH (28.0-34.0) pg MCHC (30.0-36.0) g/dL RDW (12.1-15.1) % Plt Count (130-400) 10^3/c mm MPV (7.4-10.4) fL Neut % (Auto) % Lymph % (Auto) % [place] % (Auto) % Eos % (Auto) % Baso % (Auto) % Neut # (Auto) (1.8-7.7) 10^3/u L Lymph # (Auto) (0.8-4.8) 10^3/u L [place] # (Auto) (0.2-0.9) 10^3/u L Eos # (Auto) (0.0-0.8) 10^3/u L Baso # (Auto) (0.0-0.1) 10^3/u L Nucleated RBC % (a uto) % Nucleated RBCs # /100WBC D-Dimer (0-0.59) ug/mIFE U Specimen Type arterial Sample Site right brachial ABG pH 7.41 (7.35-7.45) ABG pCO2 44.8 (35-45) mmHg ABG pO2 76.7 L (80.0-100.0) mmH g ABG HCO3 28.7 H (22-26) mmol/L ABG Base Excess 3.7 H (-2.0-2.0) mmol/ L Kaveh Test N/a Hematocrit 33.0 L (37-47) % O2 Delivery Device nasal cannula O2 Liters/Min 2.0 % Specimen Drawn By harkr [employer] Equipment Operator ID harkr Sodium (136-145) mmol/L Potassium (3.5-5.1) mmol/L Chloride (98-107) mmol/L Carbon Dioxide (22-29) mmol/L Anion Gap (5-19) BUN (8-23) mg/dL Creatinine (0.5-0.9) mg/dL GFR Calculation Glucose (65-115) mg/dL Calculated Osmolal ity (285-295) mOsm/k g Calcium (8.5-10.5) mg/dL Magnesium (1.7-2.3) mg/dL Total Bilirubin (0.15-1.2) mg/dL AST (0-32) U/L ALT (0-33) U/L Alkaline Phosphata se (35-105) IU/L Troponin T Baselin e (0-10) ng/L Troponin T 120 Min augustine (0-10) ng/L Delta Troponin T (0-10) ABS# NT-Pro-B Natriuret Pep 666 H (0-450) pg/mL Total Protein (6.6-8.7) g/dL Albumin (3.5-5.2) g/dL Globulin (1.3-4.6) g/dL TSH (0.27-4.20) uIU/ mL Urine Color (Yellow) Urine Appearance (CLEAR) Urine pH (5-7) Ur Specific Gravit y (1.005-1.030) Urine Protein (Negative) Urine Glucose (UA) (Normal) Urine Ketones (Negative) Urine Blood (Negative) Urine Nitrate (Negative) Urine Bilirubin (Negative) Urine Urobilinogen (Negative) mg/dL Ur Leukocyte Criselda ase (Negative) Imaging Data^: CXR: Attestation: I personally reviewed and interpreted this imaging study as follows: My impression: No acute cardiopulmonary findings. EKG Data^: EKG 1: Attestation: I personally reviewed and interpreted this EKG as follows: EKG interpretation date: 10/02/20 EKG interpretation time: 23:04 Interpretation: Normal sinus rhythm at 97 beats a minute, left axis deviation, left anterior fascicular block, normal QTC, normal AZ interval, no acute ST or T wave changes. Similar to previous. EKG 2: Attestation: I personally reviewed and interpreted this EKG as follows: EKG interpretation date: 10/03/20 EKG interpretation time: 01:10 Interpretation: Normal sinus rhythm at 87 beats a minute, left axis deviation, nonspecific ST-T wave changes. Unchanged from previous. Discharge Plan Discharge Patient Disposition: Placed in Observation Clinical Impression: Pulmonary emboli Qualifiers: Pulmonary embolism type: multiple subsegmental (without acute cor pulmonale) Qualified Code(s): I26.94 - Multiple subsegmental pulmonary emboli without acute cor pulmonale Coding Level of Care Code ED Organ Recovery Coordinator for g Fwd Exam Comprehensive
[2020-10-02 23:29] VITALS: BP 153/51; PULSE 88; RESP 18; O2SAT 95
[2020-10-02 23:32] LABS: Basophils % 0.1 %; Eosinophils % 0.2 %; Hematocrit 34.2 % (37.0-47.0); Lymphocytes # 0.6 10^3/uL (0.8-4.8); Mean Corpuscular HGB Conc 32.2 g/dL (30.0-36.0); Mean Corpuscular Hemoglobin 28.9 pg (28.0-34.0); Mean Corpuscular Volume 89.8 fL (81-99); Mean Platelet Volume 11.2 fL (7.4-10.4); Monocytes # 0.5 10^3/uL (0.2-0.9); Monocytes % 5.8 %; Neutrophils # 8.01 10^3/uL (1.8-7.7); Neutrophils % 87.5 %; Nucleated Red Blood Cells % 0 %; Platelet Count 145 10^3/cmm (130-400); Red Blood Count 3.81 10^6/uL (4.1-5.3); Red Cell Distribution Width 15.1 % (12.1-15.1); White Blood Count 9.2 10^3/uL (4.0-10.0)
[2020-10-02] MEDS: sodium chloride 0.9% 1,000 ML 100 ML IV (23:43)
[2020-10-02 23:53] LABS: Add Urine Microscopic? NO
[2020-10-02 23:57] LABS: D Dimer 3.14 ug/mIFEU (0-0.59)
[2020-10-03] VITALS (18 sets, daily range): BP systolic 135–175; BP diastolic 57–67; PULSE 65–88; RESP 15–19; TEMP 36.3–37; O2SAT 94–98
[2020-10-03 00:06] LABS: Troponin(5th) Baseline 25 ng/L (0-10)
[2020-10-03 00:14] LABS: Alanine Aminotransferase 20 U/L (0-33); Albumin Level 3.6 g/dL (3.5-5.2); Alkaline Phosphatase 85 IU/L (35-105); Blood Urea Nitrogen 15 mg/dL (8-23); Calcium 8.7 mg/dL (8.5-10.5); Carbon Dioxide 26 mmol/L (22-29); Chloride 101 mmol/L (98-107); Creatinine Clr Calc Pharmacy 49.2699; Globulin 2.3 g/dL (1.3-4.6); Glucose 257 mg/dL (65-115); Magnesium 1.8 mg/dL (1.7-2.3); Osmolality Calculated 296 mOsm/kg (285-295); Sodium 138 mmol/L (136-145); Thyroid Stimulating Hormone 0.67 uIU/mL (0.27-4.20); Total Bilirubin 0.3 mg/dL (0.15-1.2); Total Protein 5.9 g/dL (6.6-8.7)
[2020-10-03 00:20] LABS: Urine Appearance Clear (CLEAR); Urine Color Yellow (Yellow)
[2020-10-03 00:20] LABS: Anion Gap 15.3 (5-19); Aspartate Amino Transferase 18 U/L (0-32); Potassium 4.3 mmol/L (3.5-5.1)
[2020-10-03 00:21] LABS: Bilirubin Urine Neg (Negative); Blood Urine Neg (Negative); Glucose Urine UA 4+ (Normal); Ketones Urine Negative (Negative); Leukocyte Esterase Urine Negative (Negative); Nitrate Urine Negative (Negative); Protein Urine Neg (Negative); Urobilinogen Urine Norm (Negative)
--- NOTE | 2020-10-03 00:21 | CTR_ITS ---
PROCEDURE INFORMATION: Exam: CT Angiography Chest With Contrast Exam date and time: 10/03/2020 12:28 AM Age: 80 years old Clinical indication: Pain and abnormal findings; Abnormal diagnostic tests; Elevated d-dimer; Cough and dyspnea; Chest pain; Type not specified; Prior surgery; Surgery type: Lt mastectomy with reconstruction implant; Patient HX: HX recent covid; Additional info: Dyspnea, chest pain, positive d-dimer TECHNIQUE: Imaging protocol: Computed tomographic angiography of the chest with intravenous contrast. 3D rendering (Not supervised by radiologist): MIP and/or 3D reconstructed images were created by the technologist. Radiation optimization: All CT scans at this facility use at least one of these dose optimization techniques: automated exposure control; mA and/or kV adjustment per patient size (includes targeted exams where dose is matched to clinical indication); or iterative reconstruction. Contrast material: VISI; Contrast volume: 87 ml; Contrast route: INTRAVENOUS (IV); COMPARISON: CT angio chest PE protcl [id number] 08/27/2020 7:42 PM RADIATION DOSE METRICS: Total DLP (mGy-cm): 564.91 FINDINGS: Pulmonary arteries: There is a small volume of central segmental pulmonary arterial thrombus in the left upper and lower lobes and lingula. Moderate volume of occlusive and nonocclusive segmental pulmonary arterial thrombus in the right upper, middle and lower lobes. No saddle embolus. Aorta: There is moderate aortic atherosclerotic disease. Lungs: Lungs are clear. Pleural space: There is no pleural effusion or pneumothorax. Heart: Heart size is normal. Abnormal straightening of the interventricular septum with abnormal RV LV ratio of 1.1. Lymph nodes: Unremarkable. No enlarged lymph nodes. Bones/joints: Chronic left rib fractures. Bones are otherwise unremarkable. Soft tissues: There is a peripherally calcified left retroglandular silicone breast implant with intracapsular rupture and possible chronic extracapsular rupture at the inferolateral margin of the implant, similar to the findings on 08/27/2020. Other findings: Visible structures in the upper abdomen are unremarkable. CT/CT angio chest PE protcl [id number] IMPRESSION: 1. Pulmonary embolism. 2. Right ventricular strain. Radiation Dose CTDIVOL = (mGy): DLP = 564.91 (mGy-cm)
[2020-10-03] MEDS: iodixanol 320 mg/mL 100mL Btl IV (01:01)
[2020-10-03 01:35] LABS: ABG PCO2 44.8 mmHg (35-45); Base Excess ABG 3.7 mmol/L (-2.0-2.0); HCO3 ABG 28.7 mmol/L (22-26); PO2 ABG 76.7 mmHg (80.0-100.0)
[2020-10-03 01:48] LABS: Troponin 5 2HR 30.74 ng/L (0-10); Troponin 5 2HR Delta 5.74 ABS# (0-10)
[2020-10-03 01:57] LABS: NT Pro B Type Natriuretic Pept 666 pg/mL (0-450)
[2020-10-03] MEDS: enoxaparin 100 mg/mL Syringe 98 MG SUBCUT (01:57)
--- NOTE | 2020-10-03 02:36 | USCV_ITS ---
Marlen Francis Age: 80 Gender: F : 1940 Exam Date: 10/03/2020 10:09 Ordering Phys: Wisam Nelson MD Technologist: Steffi Holland [place] [facility] [place]: short of breath BP: / HR: 77 Rhythm: Sinus Technical Quality: Fair MEASUREMENTS (Male / Female) Normal Values 2D ECHO LV Diastolic Diameter PLAX 3.0 cm 4.2 - 5.9 / 3.9 - 5.3 cm LV Systolic Diameter PLAX 1.8 cm IVS Diastolic Thickness 1.7 cm 0.6 - 1.0 / 0.6 - 0.9 cm IVS Systolic Thickness 2.0 cm LVPW Diastolic Thickness 1.3 cm 0.6 - 1.0 / 0.6 - 0.9 cm LVPW Systolic Thickness 1.6 cm LVOT Diameter 2.0 cm LV Ejection Fraction 2D Teich 74.7 % LA Diameter 3.4 cm LA Width 3.0 cm LA Height 4.0 cm RA Width 3.7 cm RA Height 3.8 cm Aorta at Sinotubular Diameter 2.6 cm M-MODE LV Diastolic Diameter MM 5.9 cm 4.2 - 5.9 / 3.9 - 5.3 cm LV Systolic Diameter MM 4.0 cm LV Ejection Fraction MM Teich 57.7 % IVS Diastolic Thickness MM 1.1 cm 0.6 - 1.0 / 0.6 - 0.9 cm IVS Systolic Thickness MM 1.5 cm LVPW Diastolic Thickness MM 0.8 cm 0.6 - 1.0 / 0.6 - 0.9 cm LVPW Systolic Thickness MM 1.7 cm Aortic Annulus Diameter 2.8 cm LA Ao Ratio MM 1.4 MV E Point Septal Separation 0.5 cm DOPPLER AV Peak Velocity 124.0 cm/s LVOT Peak Velocity 98.0 cm/s AV Area Cont Eq vti 2.2 cm squared AV Area Cont Eq pk 2.5 cm squared MV Peak Velocity 109.0 cm/s MV Area PHT 3.1 cm squared Mitral E to A Ratio 0.9 MV E' Velocity 49.0 cm/s Mitral E to MV E' Ratio 25.2 Mitral E to LV E' Lateral Ratio 56.3 Mitral E to LV E' Septal Ratio 16.5 TR Peak Velocity 181.0 cm/s TR Peak Gradient 13.1 mmHg Right Atrial Pressure 3.0 mmHg Pulmonary Artery Systolic Pressu 16.1 mmHg PV Peak Velocity 76.0 cm/s RV Acceleration Time 0.1 s RV Ejection Time 0.3 s RV AcT/ET 0.4 FINDINGS Left Ventricle Normal left ventricular size, systolic function and wall thickness, with no regional wall motion abnormalities. Mild left ventricular hypertrophy. No regional wall motion abnormalities. Grade II/IV diastolic dysfunction, moderately elevated filling pressures. Right Ventricle The right ventricle is normal in size and function. Right Atrium The right atrium is normal in size. Left Atrium The left atrium is normal in size. Mitral Valve No gross abnormalities noted . Aortic Valve Thickened aortic valve. Tricuspid Valve No gross abnormalities no Pulmonic Valve Trace pulmonary valve regurgitation. Pericardium Normal pericardium without effusion. Aorta Plaque seen in the ascending aorta. CONCLUSIONS Normal left ventricular size, systolic function and wall thickness, with no regional wall motion abnormalities. Mild left ventricular hypertrophy. No regional wall motion abnormalities. Grade II/IV diastolic dysfunction, moderately elevated filling pressures. Thickened aortic valve. Trace pulmonary valve regurgitation. There is no pericardial effusion. There are no intracardiac masses. Technically difficult study because of the poor ultrasonic window. Dr Carl Clark MD [facility] (Electronically Signed) Final Date: 03 October 2020 20:46 S
--- NOTE | 2020-10-03 02:36 | P.HP_ITS ---
Providers/Chief Complaint Admitting Physician: Wisam Nelson MD Primary Care Provider: Jackson Valerio DO Chief Complaint: chest pain/ high blood pressure History of Present Illness Marlen Francis is a 80 year old female past medical history of hypertension, Covid pneumonia (08/2020) was admitted with chief complaint of worsening shortness of breath and chest pain and palpitation for the last couple of days. After being discharged in August 2020 for Covid pneumonia she had a complicated course, she was experiencing shortness of breath, and immediately after discharge of she had a CT angio chest done here, at that time no PE was seen.Most recently she saw a manhole stripper in [facility] and she was discharged on home oxygen as well as budesonide inhaler along with rescue inhaler. Upon arrival in the ER she was worked up for chest discomfort as well as palpitations and shortness breath. Imaging studies: CTA chest with PE protocol: There is a small volume of central segmental pulmonary arterial thrombus in the left upper and lower lobes and lingula. Moderate volume of occlusive and nonocclusive segmental pulmonary arterial thrombus in the right upper, middle and lower lobes. No saddle embolus. 2. Right ventricular strain. EKG:SINUS RHYTHM ( Left-axis deviation no longer present , Right ventricular hypertrophy no longer present ) D-dimer: 3.14 ABG: pH 7.41, PCO2 44, PO2: 76 on 2 L oxygen Troponin: Baseline 25, 2-hour, 30, delta: 5, proBNP: 666 ECA medication: Lovenox 98 mg subcu at 1 time dose Review of Systems Const: Denies: fever(s), chills, body aches, change in appetite or diaphoresis Card: Denies: orthopnea or leg pain with exertion Resp: Denies: productive cough or wheezing GI: Denies: abdominal pain, nausea, vomiting, diarrhea or constipation : Denies: flank pain Musc: Denies: back pain, extremity pain or extremity swelling Neuro: Denies: headache(s), difficulty walking or confusion Medications/Allergies Home Medications Medication Instructions Recorded Confirmed Last Taken Type metoprolol succinate 25 mg capsule 25 mg PO DAILY #30 each 04/18/20 09/09/20 08/26/20 Rx sprinkle, ext. release 24 hr omeprazole 40 mg capsule,delayed 40 mg PO DAILY #30 cap 0609/09/20 08/27/20 Rx release sertraline 50 mg tablet 25 mg PO DAILY #90 tab 05/20/20 09/09/20 08/27/20 Rx bumetanide 0.5 mg tablet See Rx Instructions .ROUTE 06/20/20 09/09/20 08/27/20 Rx .COMPLEX #90 unspecified rosuvastatin 40 mg PO DAILY 08/27/20 09/09/20 08/26/20 History aspirin 81 mg tablet,delayed 81 mg PO DAILY #90 tab 08/28/20 09/09/20 Unknown Rx release prednisone 20 mg tablet See Rx Instructions .ROUTE 09/16/20 09/16/20 Unknown Rx .COMPLEX #15 tab Allergies Allergy/AdvReac Type Severity Reaction Status Date / Time adhesive tape Allergy Unknown Unknown Verified 09/09/20 13:16 Penicillins Allergy Unknown Unknown Verified 09/09/20 13:16 Sulfa (Sulfonamide Allergy Unknown Unknown Verified 09/09/20 13:16 Antibiotics) acetaminophen [From Percocet] AdvReac Unknown Unknown Verified 09/09/20 13:16 oxycodone [From Percocet] AdvReac Unknown Unknown Verified 09/09/20 13:16 PFSH Acute PFSH: Medical History (Updated 10/03/20 @ 03:12 by Wisam Nelson MD) Bulging lumbar disc Chronic back pain Chronic kidney disease COVID-19 determined by clinical diagnostic criteria Depression Hip pain History of cancer of left breast Hyperlipemia Hypoxia Irregular heart beat Pyelonephritis Reflux esophagitis Right shoulder pain Surgical History History of bunionectomy 3x both feet History of cataract extraction History of cholecystectomy History of eye surgery left History of knee replacement bilateral Family History Father CAD (coronary artery disease) Mother CAD (coronary artery disease) Social History Smoking and tobacco status: never smoked Alcohol intake: never Household members: spouse Housing: House Current occupational status: retired Vitals/I&O/Wt Last Vital Signs Temp 97.9 F 10/03/20 02:26 Pulse 80 10/03/20 02:26 Resp 19 H 10/03/20 02:26 BP 149/57 10/03/20 02:26 Pulse Ox 97 10/03/20 02:26 Weight last 48 hrs Weight 98.883 kg Physical Exam Const: COMMON NORMALS: patient oriented x3 HENMT: COMMON NORMALS: normocephalic, atraumatic, hearing grossly normal bilaterally and external ears normal HEAD & SCALP: normocephalic and atraumatic EXTERNAL EAR: Yes external ears normal Eye: COMMON NORMALS: no scleral icterus GENERAL EYE: appearance normal, both eyes and all related structures Chest: COMMONS NORMALS: normal inspection of the chest and normal palpation of entire chest wall CHEST: Yes Symmetrical chest wall rise Resp: COMMON NORMALS: normal respiratory effort, No retractions, No use of accessory muscles and clear to auscultation bilaterally EFFORT & INSPECTION: Yes symmetric chest movement AUSCULTATION: clear to auscultation bilaterally Cardio: COMMON NORMALS: regular rate, regular rhythm, S1 normal heart sound present, S2 normal heart sound present, No gallops present (Cardio), No murmurs present (Cardio), No rub (Cardio) and Peripheral pulses 2+ throughout RATE: regular rate RHYTHM: regular rhythm HEART SOUNDS: S1 normal heart sound present and S2 normal heart sound present PERIPHERAL PULSES: Peripheral pulses 2+ throughout GI: COMMON NORMALS: Normal to inspection, nondistended, normoactive bowel sounds present, Soft to palpation, non-tender, No hepatosplenomegaly present and no masses AUSCULTATION: Yes normoactive bowel sounds PALPATION: Yes Soft to palpation and Yes No hepatosplenomegaly present RECTAL EXAM: deferred Extremity: COMMON NORMALS: no clubbing, cyanosis or edema and no pedal edema Neuro: COMMON NORMALS: patient oriented x3 Data : 10/02/20 23:25 10/02/20 23:25 A&P Assessment and plan (1) Pulmonary emboli: Patient received Lovenox 98 MG SC * 1 DOSE We will start her on Eliquis 10 mg every 12 hours daily for 7 days and then switch to 5 mg every 12 hours daily. Likely a candidate for long-term anticoagulation. Given the finding of RV strain on CT angio. We will do 2D echo in the morning. Status: Acute Qualifiers: Pulmonary embolism type: multiple subsegmental (without acute cor pulmonale) Qualified Code(s): I26.94 - Multiple subsegmental pulmonary emboli without acute cor pulmonale (2) Pneumonia due to 2019-nCoV: History of Covid pneumonia 08/20. On 2 Ls home oxygen. Continue neb as needed Status: Acute (3) Hypertension: Continue metoprolol succinate 25 mg oral every day Status: Acute (4) BMI 34.0-34.9,adult: Diet and exercise. Status: Acute Additional A&P Information DVT PPX: On eliquis Code Status :Full code Disposition : Home Attestations Medical Necessity Statement*: Patient needs to be in hospital for management of acute PE. Coding Level of Care Code Acute Reimbursement Manager for [facility] Fwd Diagnoses Pulmonary emboli I26.94 Pulmonary embolism type: multiple subsegmental (without acute cor pulmonale) Pneumonia due to 2019-nCoV U07.1; J12.89 Hypertension I10 BMI 34.0-34.9,adult Z68.34
--- NOTE | 2020-10-03 03:04 | PC.NURSE ---
Patient received from ED via stretcher. Patient able to step over to bed with minimal contact assist. Patient has own cane at bedside. Admission completed as documented. Patient denies pain. No distress observed.
--- NOTE | 2020-10-03 05:15 | ECG_ITS ---
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 Measurements Intervals [place] Rate: 87 P: 55 SD: 196 QRS: -17 QRSD: 77 T: 67 QT: 367 QTc: 442 Interpretive Statements SINUS RHYTHM Compared to ECG 08/27/2020 16:30:24 Left-axis deviation no longer present Right ventricular hypertrophy no longer present Electronically Signed On 10-03-2020 17:40:05 HOURLY SALES STAFF by Nehemias Johnson M.D. [id number]
[2020-10-03 05:36] LABS: Basophils % 0.2 %; Eosinophils # 0.1 10^3/uL (0.0-0.8); Eosinophils % 0.8 %; Hematocrit 33.3 % (37.0-47.0); Hemoglobin 10.5 g/dL (11.5-15.3); Lymphocytes # 1.2 10^3/uL (0.8-4.8); Lymphocytes % 13.9 %; Mean Corpuscular HGB Conc 31.5 g/dL (30.0-36.0); Mean Corpuscular Hemoglobin 28.8 pg (28.0-34.0); Mean Corpuscular Volume 91.5 fL (81-99); Mean Platelet Volume 11.2 fL (7.4-10.4); Monocytes # 0.5 10^3/uL (0.2-0.9); Monocytes % 6.1 %; Neutrophils % 78.5 %; Nucleated Red Blood Cells % 0 %; Platelet Count 123 10^3/cmm (130-400); Red Blood Count 3.64 10^6/uL (4.1-5.3); White Blood Count 8.4 10^3/uL (4.0-10.0)
[2020-10-03 05:49] LABS: INR 0.85 (0.8-1.2)
[2020-10-03 05:58] LABS: Troponin 5 6HR 37.42 ng/L (0-10)
[2020-10-03 05:59] LABS: Alanine Aminotransferase 17 U/L (0-33); Albumin Level 3.3 g/dL (3.5-5.2); Alkaline Phosphatase 80 IU/L (35-105); Anion Gap 12.8 (5-19); Aspartate Amino Transferase 13 U/L (0-32); Blood Urea Nitrogen 14 mg/dL (8-23); Calcium 8.8 mg/dL (8.5-10.5); Carbon Dioxide 28 mmol/L (22-29); Chloride 104 mmol/L (98-107); Globulin 2.1 g/dL (1.3-4.6); Glucose 134 mg/dL (65-115); Magnesium 1.9 mg/dL (1.7-2.3); Osmolality Calculated 294 mOsm/kg (285-295); Potassium 3.8 mmol/L (3.5-5.1); Sodium 141 mmol/L (136-145); Total Bilirubin 0.3 mg/dL (0.15-1.2); Total Protein 5.4 g/dL (6.6-8.7)
[2020-10-03 06:00] LABS: Anion Gap 13.9 (5-19); Blood Urea Nitrogen 14 mg/dL (8-23); Calcium 8.8 mg/dL (8.5-10.5); Carbon Dioxide 28 mmol/L (22-29); Chloride 105 mmol/L (98-107); Glucose 135 mg/dL (65-115); Osmolality Calculated 299 mOsm/kg (285-295); Potassium 3.9 mmol/L (3.5-5.1); Sodium 143 mmol/L (136-145)
[2020-10-03 06:05] LABS: Troponin 5 6HR Delta 12.42 ng/L (0-12)
[2020-10-03] MEDS: metoprolol succinate ER (24 HR) 25 mg Tablet PO (08:31)
[2020-10-03] MEDS: aspirin 81 mg EC Tablet PO (08:31)
[2020-10-03] MEDS: apixaban 5 mg Tablet 10 MG PO ×2 (08:31→17:16)
[2020-10-03] MEDS: sertraline 50 mg Tablet 25 MG PO (08:31)
[2020-10-03] MEDS: atorvastatin 40 mg Tablet 80 MG PO (08:31)
[2020-10-03] MEDS: pantoprazole DR 40 mg Tablet PO (08:31)
[2020-10-03] MEDS: ipratropium-albuterol 3 mL Neb INHALATION ×2 (08:56→15:00)
--- NOTE | 2020-10-03 09:25 | PC.NURSE ---
patient resting in bed. morning medications administered as ordered. patient educated on eliquis being her new blood thinner. patient verbalized an understanding. needs within reach, no other needs identified at this time.
--- NOTE | 2020-10-03 10:54 | PC.CHAP ---
Pastoral Care Encounter/Spiritual Assessment Type of Contact [] Declined fuel island attendant visit [] Patient/Family/Request visit [] Outpatient visit [] Follow-up visit [] Physician referral [] Code/Alert [x] Routine visit [] Staff referral [] Actively dying [] Patient sleeping [] Family support [] [] Out of room [] Palliative care [] [x] Receiving care in room [] Pre-surgical visit [] Trauma [] Long length of stay [] ICU visit [] Other: Relational/Emotional Strength [x] Patient feels connected with others/family/visitors/staff [] Distress [] Loneliness/isolation [] Abandonment Spirituality of Patient [x] Person of Shahida [] Attends Sikh of their Shahida [x] Believes in Prayer [] Reads Bible or Scientologist materials [] There are Spiritual issues to be addressed Upkeep Worker Interventions [x] Prayer [x] Active listening [x] Non-anxious presence [x] Spiritual/emotional support [] Crisis/trauma care [x] Spiritual counseling [] Bereavement support [] Provided bereavement packet [] Provided Bible/devotional materials [] Provided toy/stuffed animal, coloring book to patient or family member [] Provided Communion [] Anointing/[place] [] Salvation [x] Completed spiritual assessment [] Other: Impact on Illness or Injury [] Angry [] Fearful [x] Anxious [] Often cries [] Exhaustion [] Unable to work [] Unable to attend roman catholic [] Unable to walk/stand [] Unable to read [] Unable to drive [] Unable to eat/drink [] Unable to sleep [] Unable to be with family [] Patient intubated [] Other: Summary Waitung on test to see what needs to be done, has a good attitiude Time spent with patient 10 mins
--- NOTE | 2020-10-03 11:55 | PM.PN ---
Subjective Subjective: Interval history: Chart reviewed, hemodynamically stable, afebrile, maintained on baseline oxygen requirement of 2 L NC. On Eliquis. Very pleasant, resting in bed, reports feeling better today. Echo and venous duplex done, reports pending. Medications: Reviewed: Yes Medication Review Details: Active Medications Generic Name Dose Route Start Last Admin Trade Name Freq PRN Reason Stop Dose Admin Albuterol/Ipratrop ium 3 ml 10/03/20 02:35 10/03/20 08:56 Ipratropium-Albu terol 3 Ml Neb INHALATION 3 ml Q6H PRN Administration SHORTNESS OF OSMEL TH Apixaban 10 mg 10/03/20 09:00 10/03/20 08:31 Apixaban 5 Mg Ta blet PO 10 mg BID VENUS Administration Aspirin 81 mg 10/03/20 09:00 10/03/20 08:31 Aspirin 81 Mg Ec Tablet PO 81 mg DAILY VENUS Administration Atorvastatin Calci um 80 mg 10/03/20 09:00 10/03/20 08:31 Atorvastatin 40 Mg Tablet PO 80 mg DAILY VENUS Administration Bisacodyl 10 mg 10/03/20 02:30 Bisacodyl 5 Mg T ablet PO DAILY PRN CONSTIPATION Sodium Chloride 1,000 mls @ 75 ml s/hr 10/03/20 02:30 10/03/20 07:01 Sodium Chloride 0.9% IV Not Given .[id number] VENUS Metoprolol Succina te 25 mg 10/03/20 09:00 10/03/20 08:31 Metoprolol Succi jong Er (24 Hr) 25 Mg Tablet PO 25 mg DAILY VENUS Administration Naloxone HCl 0.1 mg 10/03/20 02:30 Naloxone 0.4 Mg/ Ml Sdv IVP Q2M PRN OPIATERV Ondansetron HCl 4 mg 10/03/20 02:30 Ondansetron 2 Mg /Ml Sdv 2 Ml IVP Q8H PRN vomiting, or N/V if npo Ondansetron HCl 4 mg 10/03/20 02:36 Ondansetron 2 Mg /Ml Sdv 2 Ml IVP Q6H PRN NAUSEA AND VOMITI NG Pantoprazole Sodiu m 40 mg 10/03/20 09:00 10/03/20 08:[address] 40 Mg Tablet PO 40 mg DAILY VENUS Administration Sertraline HCl 25 mg 10/03/20 09:00 10/03/20 08:31 Sertraline 50 Mg Tablet PO 25 mg DAILY VENUS Administration adhesive tape Allergy (Unknown, Verified 09/09/20 13:16) Unknown Penicillins Allergy (Unknown, Verified 09/09/20 13:16) Unknown Sulfa (Sulfonamide Antibiotics) Allergy (Unknown, Verified 09/09/20 13:16) Unknown acetaminophen [From Percocet] Adverse Reaction (Unknown, Verified 09/09/20 13:16) Unknown oxycodone [From Percocet] Adverse Reaction (Unknown, Verified 09/09/20 13:16) Unknown Vitals/I&O/Wt Last Vital Signs Temp 97.7 F 10/03/20 11:31 Pulse 75 10/03/20 11:31 Resp 15 10/03/20 11:31 BP 136/67 10/03/20 11:31 Pulse Ox 97 10/03/20 11:31 10/02/20 10/03/20 10/03/20 22:59 06:59 14:59 Intake Total 1240 / 1240 Balance 1240 / 1240 Weight last 48 hrs Weight 98.883 kg Physical Exam Const: COMMON NORMALS: no acute distress, patient oriented x3 and alert GENERAL APPEARANCE: cooperative and comfortable NUTRITIONAL APPEARANCE: obese morbidly obese ORIENTATION/CONSCIOUSNESS: Yes awake OTHER: -looks appropriate for age HENMT: COMMON NORMALS: normocephalic, atraumatic, hearing grossly normal bilaterally and moist oral mucous membranes HEAD & SCALP: normocephalic and atraumatic Eye: COMMON NORMALS: Equal, round and reactive pupils present, EOMs intact bilaterally and conjunctivae normal CONJUNCTIVA: Yes conjunctivae normal PUPIL: Yes Equal, round and reactive pupils present Neck/C-Spine: COMMON NORMALS: full ROM GENERAL: Yes normal visual inspection and Yes trachea midline Resp: COMMON NORMALS: normal respiratory effort, No retractions, No use of accessory muscles and clear to auscultation bilaterally EFFORT & INSPECTION: Yes able to speak in complete sentences, Yes symmetric chest movement and No tachypneic AUSCULTATION: clear to auscultation bilaterally Cardio: COMMON NORMALS: regular rate, regular rhythm, S1 normal heart sound present, S2 normal heart sound present and No murmurs present (Cardio) RATE: regular rate RHYTHM: regular rhythm HEART SOUNDS: S1 normal heart sound present and S2 normal heart sound present GI: COMMON NORMALS: Normal to inspection, nondistended, normoactive bowel sounds present, Soft to palpation and non-tender INSPECTION: Yes central obesity PALPATION: Yes Soft to palpation Extremity: COMMON NORMALS: normal to inspection, full ROM and no clubbing, cyanosis or edema; negative for no pedal edema Neuro: COMMON NORMALS: patient oriented x3, moves all extremities, no focal motor deficits and no sensory deficits noted SENSORIUM/ORIENTATION: Yes alert Psych: COMMON NORMALS: mental status grossly normal, Normal thought process present, cooperative, normal affect and speech normal SPEECH: Yes normal speech THOUGHT PROCESS: Normal thought process present Skin: COMMON NORMALS: no rashes or lesions noted, no jaundice, no petechiae and no mottling GENERAL SKIN EXAM: no rashes or lesions noted Data : 10/03/20 05:15 10/03/20 05:15 A&P Assessment and plan (1) Pulmonary emboli: -noted evidence of multiple bilateral PE, with evidence of RV strain on CTA -received therapeutic dose of Lovenox in ED, now on treatment dose of Eliquis -Echo pending -VSS; continue to monitor -continue to monitor respiratory status; supplemental oxygen as needed -monitor for bleeding -venous duplex to evaluate for DVT Status: Acute Qualifiers: Pulmonary embolism type: multiple subsegmental (without acute cor pulmonale) Qualified Code(s): I26.94 - Multiple subsegmental pulmonary emboli without acute cor pulmonale (2) Hypertension: -VSS; continue to monitor vital signs -continue oral antihypertensives Status: Chronic Qualifiers: Hypertension type: essential hypertension Qualified Code(s): I10 - Essential (primary) hypertension (3) BMI 34.0-34.9,adult: -BMI-34 kg/m2 Status: Chronic Additional A&P Information -Advanced age -recent COVID-19 pneumonia (08/2020) after which she has required supplemental oxygen -dyslipidemia; on statin -hx of atrial tachycardia; on BB, HR controlled -CKD stage unknown; baseline Cr 1.0-1.4 -cardiac diet as tolerated -GI ppx with PPI -DVT ppx not needed as on Eliquis -Dispo: home -Code status: FULL code Attestations Medical Necessity Statement*: Patient requires hospitalization for continued therapeutic anticoagulation, further evaluation with Echo, venous duplex. Time Spent in Patient Care: 16 - 35 minutes (>than 50% of time spent in counselling and/or direct pt care on unit). Coding Level of Care Code Acute Hand Launderer for Chg Fwd Exam Comprehensive Diagnoses Pulmonary emboli I26.94 Pulmonary embolism type: multiple subsegmental (without acute cor pulmonale) Hypertension I10 Hypertension type: essential hypertension BMI 34.0-34.9,adult Z68.34
--- NOTE | 2020-10-03 12:06 | USCV_ITS ---
Marlen Francis Age: 80 Gender: F : 1940 Exam Date: 10/03/2020 12:19 Ordering Phys: Areli Kuhn MD Technologist: Natividad Ames [place] [facility] [place]: PE HISTORY: Lower extremity swelling. PROCEDURES: The venous duplex Doppler examination of both lower extremities was performed in the standard fashion. The following venous structures were evaluated: common femoral vein, profunda vein, proximal portion of the greater saphenous vein, superficial femoral vein, and the popliteal vein. Bilaterally, the common femoral, superficial femoral, profunda femoral, popliteal, posterior tibial, greater saphenous veins, and the peroneal trunk were identified and interrogated in the standard fashion. These veins were found to be easily compressible with spontaneous blood flow. No evidence of insufficiency or thrombus noted. FINDINGS: Normal 2-D Doppler and augmentation and compressibility throughout the lower extremity venous structures. Additional imaging through the proximal calf veins also reveals no thrombus. Limited evaluation of the greater saphenous vein is patent with no thrombus.. CONCLUSIONS No evidence of right lower extremity DVT. No evidence of left lower extremity DVT. Dipak Uribe MD (Electronically Signed) Final Date: 03 October 2020 17:44 S
[2020-10-03 15:06] LABS: ABG PH Result 7.42 (7.35-7.45); Blood Gas Operator Identificat HARKR; Blood Gas Sample Site Brachial, right; Blood Gas Sample Type Arterial; Oxygen Device NC
--- NOTE | 2020-10-03 19:50 | PC.NURSE ---
Received report from NATE Fletcher. Patient up in room. Denies needs or pain at this time. No distress observed.
[2020-10-04] VITALS (8 sets, daily range): BP systolic 133–162; BP diastolic 55–68; PULSE 63–128; RESP 14–18; TEMP 36.2–36.9; O2SAT 96–98
[2020-10-04 04:37] LABS: Basophils % 0.5 %; Eosinophils # 0.4 10^3/uL (0.0-0.8); Eosinophils % 5.7 %; Hemoglobin 10.4 g/dL (11.5-15.3); Lymphocytes # 1.6 10^3/uL (0.8-4.8); Lymphocytes % 25.4 %; Mean Corpuscular HGB Conc 31.5 g/dL (30.0-36.0); Mean Corpuscular Volume 91.9 fL (81-99); Monocytes # 0.3 10^3/uL (0.2-0.9); Monocytes % 5.4 %; Neutrophils # 3.85 10^3/uL (1.8-7.7); Neutrophils % 62.7 %; Nucleated Red Blood Cells % 0 %; Platelet Count 125 10^3/cmm (130-400); Red Blood Count 3.59 10^6/uL (4.1-5.3); Red Cell Distribution Width 15.5 % (12.1-15.1); White Blood Count 6.1 10^3/uL (4.0-10.0)
[2020-10-04 04:56] LABS: Alanine Aminotransferase 16 U/L (0-33); Albumin Level 3.3 g/dL (3.5-5.2); Alkaline Phosphatase 64 IU/L (35-105); Anion Gap 9.3 (5-19); Aspartate Amino Transferase 13 U/L (0-32); Blood Urea Nitrogen 18 mg/dL (8-23); Carbon Dioxide 29 mmol/L (22-29); Chloride 109 mmol/L (98-107); Globulin 2.2 g/dL (1.3-4.6); Glucose 129 mg/dL (65-115); INR 1.11 (0.8-1.2); Magnesium 1.9 mg/dL (1.7-2.3); Osmolality Calculated 300 mOsm/kg (285-295); Potassium 4.3 mmol/L (3.5-5.1); Sodium 143 mmol/L (136-145); Total Bilirubin 0.4 mg/dL (0.15-1.2); Total Protein 5.5 g/dL (6.6-8.7)
[2020-10-04] MEDS: metoprolol succinate ER (24 HR) 25 mg Tablet PO (08:02)
[2020-10-04] MEDS: sertraline 50 mg Tablet 25 MG PO (08:02)
[2020-10-04] MEDS: pantoprazole DR 40 mg Tablet PO (08:02)
[2020-10-04] MEDS: apixaban 5 mg Tablet 10 MG PO (08:03)
[2020-10-04] MEDS: atorvastatin 40 mg Tablet 80 MG PO (08:03)
[2020-10-04] MEDS: aspirin 81 mg EC Tablet PO (08:03)
[2020-10-04] MEDS: ipratropium-albuterol 3 mL Neb INHALATION (08:43)
--- NOTE | 2020-10-04 09:22 | PM.DCS ---
Discharge Providers Date of Admission: 10/03/20 02:01 Date of Discharge: October 04, 2020 Attending Provider at Admission: Wisam Nelson MD Attending Provider at Discharge: Areli Kuhn MD Consults: None Primary Care Provider: Jackson Valerio DO Diagnoses at Discharge Discharge Diagnosis (1) Pulmonary emboli: Status: Acute Permanent problem details: -noted evidence of multiple bilateral PE, with evidence of RV strain on CTA -received therapeutic dose of Lovenox in ED, now on treatment dose of Eliquis -Echo: no RWMA, G2DD, normal RV (size and function) -VSS; continue to monitor -continue to monitor respiratory status; supplemental oxygen as needed -monitor for bleeding; none -venous duplex: negative for DVT in bilateral LEs Qualifiers: Pulmonary embolism type: multiple subsegmental (without acute cor pulmonale) Qualified Code(s): I26.94 - Multiple subsegmental pulmonary emboli without acute cor pulmonale (2) Hypertension: Status: Chronic Permanent problem details: -VSS; continue to monitor vital signs -continue oral antihypertensives Qualifiers: Hypertension type: essential hypertension Qualified Code(s): I10 - Essential (primary) hypertension (3) BMI 34.0-34.9,adult: Status: Chronic Permanent problem details: -BMI-34 kg/m2 Other Information Additional DC diagnoses/information: -Advanced age -recent COVID-19 pneumonia (08/2020) after which she has required supplemental oxygen, baseline of 2 L NC -dyslipidemia; on statin -hx of atrial tachycardia; on BB, HR controlled -CKD stage unknown; baseline Cr 1.0-1.4 Reason for Visit Reason for Visit: chest pain/ high blood pressure Hospital Course Hospital Course Patient was admitted to the cardiac stepdown unit and placed on telemetry monitoring. She had presented with chest pain, worsening shortness of breath and palpitations and had been recovering from COVID-19 pneumonia. She had been on supplemental oxygen, intermittent usage, and she had followed up with a datapower developer in [place] and been started on inhalers. Work-up here revealed bilateral PE with evidence of right ventricular strain on CTA. She had a venous duplex which ruled out DVT in bilateral lower extremities, and echo which shows normal right ventricular function and size. She initially was treated with therapeutic Lovenox and transitioned to Eliquis. She will need continued anticoagulation for minimum of 3 months as this is her first VTE. She was previously on aspirin which has been discontinued to minimize risk of bleeding. For improved heart rate control metoprolol dose was slightly increased but medications are otherwise unchanged. She will require appropriate follow-up with her primary care provider. She is counseled on need to monitor for bleeding and to seek medical attention immediately should she notice any. She has been maintained on her baseline oxygen requirement of 2 L NC. Physical Exam Const: COMMON NORMALS: no acute distress, patient oriented x3 and alert GENERAL APPEARANCE: cooperative and comfortable NUTRITIONAL APPEARANCE: obese morbidly obese ORIENTATION/CONSCIOUSNESS: Yes awake OTHER: -looks appropriate for age HENMT: COMMON NORMALS: normocephalic, atraumatic, hearing grossly normal bilaterally and moist oral mucous membranes HEAD & SCALP: normocephalic and atraumatic Eye: COMMON NORMALS: Equal, round and reactive pupils present, EOMs intact bilaterally and conjunctivae normal CONJUNCTIVA: Yes conjunctivae normal PUPIL: Yes Equal, round and reactive pupils present Neck/C-Spine: COMMON NORMALS: full ROM GENERAL: Yes normal visual inspection and Yes trachea midline Resp: COMMON NORMALS: normal respiratory effort, No retractions, No use of accessory muscles and clear to auscultation bilaterally EFFORT & INSPECTION: Yes able to speak in complete sentences, Yes symmetric chest movement and No tachypneic AUSCULTATION: clear to auscultation bilaterally OTHER: -on 2 L NC Cardio: COMMON NORMALS: regular rate, regular rhythm, S1 normal heart sound present, S2 normal heart sound present and No murmurs present (Cardio) RATE: regular rate RHYTHM: regular rhythm HEART SOUNDS: S1 normal heart sound present and S2 normal heart sound present GI: COMMON NORMALS: Normal to inspection, nondistended, normoactive bowel sounds present, Soft to palpation and non-tender INSPECTION: Yes central obesity PALPATION: Yes Soft to palpation Extremity: COMMON NORMALS: normal to inspection, full ROM and no clubbing, cyanosis or edema; negative for no pedal edema Neuro: COMMON NORMALS: patient oriented x3, moves all extremities, no focal motor deficits and no sensory deficits noted SENSORIUM/ORIENTATION: Yes alert Psych: COMMON NORMALS: mental status grossly normal, Normal thought process present, cooperative, normal affect and speech normal SPEECH: Yes normal speech THOUGHT PROCESS: Normal thought process present Skin: COMMON NORMALS: no rashes or lesions noted, no jaundice, no petechiae and no mottling GENERAL SKIN EXAM: no rashes or lesions noted Discharge Data Data Completed and Pending: Completed Studies During Hospitalization Category Date Time Status CT angio chest PE protcl [id number] Stat Cat Scan 10/03/20 00:21 Completed XR chest 1V [place] ble [id number] Stat Exams 10/02/20 23:15 Completed CV echo complete* [id number] Routine Ultrasound 10/03/20 02:36 [place] [id number] Routin e Ultrasound 10/03/20 12:06 Completed Pending at discharge Category Date Time Status Complete Blood Co unt w/Auto AM LABS Lab 10/05/20 04:00 Ordered Complete Blood Co unt w/Auto AM LABS Lab 10/06/20 04:00 Ordered Comprehensive Met abolic Panel AM LA BS Lab 10/05/20 04:00 Ordered Comprehensive Met abolic Panel AM LA BS Lab 10/06/20 04:00 Ordered Labs from last 24 hours 10/04/20 10/04/20 10/04/20 03:35 03:35 03:35 WBC 6.1 RBC 3.59 L Hgb 10.4 L Hct 33.0 L MCV 91.9 MCH 29.0 MCHC 31.5 RDW 15.5 H Plt Count 125 L MPV 11.0 H Neut % (Auto) 62.7 Lymph % (Auto) 25.4 Louisa % (Auto) 5.4 Eos % (Auto) 5.7 Baso % (Auto) 0.5 Neut # (Auto) 3.85 Lymph # (Auto) 1.6 Louisa # (Auto) 0.3 Eos # (Auto) 0.4 Baso # (Auto) 0.0 Nucleated RBC % (a uto) 0 Nucleated RBCs # 0.0 PT 14.70 INR 1.11 Specimen Type Sample Site ABG pH O2 Delivery Device 1St [employer] ID Sodium 143 Potassium 4.3 Chloride 109 H Carbon Dioxide 29 Anion Gap 9.3 BUN 18 Creatinine 1.3 H GFR Calculation Not Reportable Glucose 129 H Calculated Osmolal ity 300 H Calcium 9.0 Magnesium 1.9 Total Bilirubin 0.4 AST 13 ALT 16 Alkaline Phosphata se 64 Total Protein 5.5 L Albumin 3.3 L Globulin 2.2 10/03/20 01:23 WBC RBC Hgb Hct MCV MCH MCHC RDW Plt Count MPV Neut % (Auto) Lymph % (Auto) Louisa % (Auto) Eos % (Auto) Baso % (Auto) Neut # (Auto) Lymph # (Auto) Louisa # (Auto) Eos # (Auto) Baso # (Auto) Nucleated RBC % (a uto) Nucleated RBCs # PT INR Specimen Type Arterial Sample Site Brachial, right ABG pH 7.42 O2 Delivery Device Nc 1St [employer] ID Harkr Sodium Potassium Chloride Carbon Dioxide Anion Gap BUN Creatinine GFR Calculation Glucose Calculated Osmolal ity Calcium Magnesium Total Bilirubin AST ALT Alkaline Phosphata se Total Protein Albumin Globulin Vitals: Last Vital Signs Temp 97.2 F L 10/04/20 07:50 Pulse 128 H 10/04/20 08:50 Resp 16 10/04/20 08:45 BP 162/68 10/04/20 07:50 Pulse Ox 96 10/04/20 08:45 Discharge Plan Discharge Patient Disposition: Home Condition: Stable Prescriptions: New Eliquis 5 mg Tablet See Rx Instructions .ROUTE .COMPLEX Qty: 74 RF: 0 Continued omeprazole 40 mg capsule,delayed release(DR/EC) 40 mg PO DAILY Qty: 30 RF: 11 rosuvastatin 40 mg tablet 40 mg PO QPM RF: 0 Multi-Vitamins Tablet 1 tab PO QPM RF: 0 sertraline 50 mg Tablet 50 mg PO DAILY RF: 0 calcium 600 mg Capsule 600 mg PO BID RF: 0 bumetanide 0.5 mg Tablet 0.5 mg PO QPM RF: 0 ipratropium-albuterol 0.5 mg-3 mg(2.5 mg base)/3 mL Solution For Nebulization 3 ml INHALATION QID PRN (Reason: Shortness Of Breath) RF: 0 budesonide 0.5 mg/2 mL Suspension For Nebulization 0.5 mg inhalation BID RF: 0 Geritol 50-0.4 mg Tablet 1 tab PO QPM RF: 0 Changed metoprolol succinate 25 mg Tablet Extended Release 24 Hr 25 mg PO QPM Qty: 0 RF: 0 Discontinued aspirin [Adult Aspirin Regimen] 81 mg tablet,delayed release (DR/EC) 81 mg PO DAILY Qty: 90 RF: 0 Discharge Orders: Discharge Order (Routine); Ordered 10/04/20 Ordered By: Areli Kuhn Referrals: Jackson Valerio DO [Primary Care Provider] - 4-7 days Discharge Diet: Cardiac Discharge Activity: Increase activity as tolerated and Oxygen as instructed Activity Restrictions/Additional Instructions: -Please continue to use supplemental oxygen as previously instructed. -Please note that you are not going to be taking a blood thinner. Please take this medication as prescribed. Aspirin has been discontinued due to increased risk of bleeding. Please monitor for any bleeding including blood in urine or stool. If you experience any bleeding please medical attention immediately Discharge Attestations Time Spent in Discharge Care*: greater than 30 min Specific Discharge Activities: educating patient, discussing with protective services case worker/social workers/dc planners, documenting/other paperwork and evaluating patient/reviewing data Status at Discharge: Cognitive status at discharge: cognitively intact, Behavioral status at discharge: cooperative, Functional status at discharge: independent ambulation Overall status at discharge: patient is progressing back to baseline Quality Metrics Clinical Quality Measures During this hospital stay, did patient experience: VTE Contraindication to Overlap Therapy: Overlap treatment not indicated VTE Discharge Education: Education about anticoagulant therapy/Care Notes given, Medication side effects education and Follow-up arranged Deep Vein Thrombosis/Pulmonary Embolism Present on Admission: Yes Coding Level of Care Code Acute Flight Attendant [facility] for [facility] Fwd Exam Comprehensive Diagnoses Pulmonary emboli I26.94 Pulmonary embolism type: multiple subsegmental (without acute cor pulmonale) Hypertension I10 Hypertension type: essential hypertension BMI 34.0-34.9,adult Z68.34
== END 2020-10-04 12:58 | disposition home or self-care (01) ==
LOC: ER 10-03 01:55 → CSU 10-03 02:20
PROVIDERS: Admitting Provider Internal Medicine; Emergency Provider Emergency Medicine; PCP Family Medicine; Visit Provider Family Medicine
DX: I26.94 Multiple subsegmental thrombotic pulmonary emboli without acute cor pulmonale (principal); J12.89 Other viral pneumonia; I10 Essential (primary) hypertension; Z79.82 Long term (current) use of aspirin; N18.9 Chronic kidney disease, unspecified; E78.5 Hyperlipidemia, unspecified; Z85.3 Personal history of malignant neoplasm of breast
CPT/HCPCS: 12345; 36415; 36600; 71045; 71275; 80048; 80053; 81003; 82803; 83735; 83880; 84443; 84484; 85025; 85378; 85610; 93005; 93306; 93970; 94640; 96360; 96361; 96372; 99283; 99285; G0378; J1650; J7030; Q9967